=== PATIENT | female | born 1970 | race Caucasian/White ===

== ENCOUNTER 2020-08-19 08:02 | Emergency (ER) | payer BC, SELFPAY ==
--- NOTE | ~2020-08-19 | XR_ITS ---
EXAMINATION: XR CHEST CLINICAL INFORMATION: CWP. COMPARISON: 09/30/2017 chest radiographs. TECHNIQUE: 2 views of the chest were obtained. FINDINGS: The lungs show generalized hyperinflation, but otherwise are clear. The heart and mediastinal structures are unremarkable. XR/XR chest 2V IMPRESSION: Generalized hyperinflation is nonspecific, but can be seen with COPD. This is similar to the previous study. No acute cardiopulmonary process.
[2020-08-19 08:19] VITALS: BP 139/79; BP 150/60; PULSE 64; PULSE 74; RESP 18; TEMP 36.3; O2SAT 96; O2SAT 99; BMI 21.6
--- NOTE | 2020-08-19 08:29 | ED.OVERDOSE ---
HPI - Overdose General Chief Complaint: Overdose Stated Complaint: overdoses Time Seen by Provider: 08/19/20 08:28 Source: EMS Mode of arrival: EMS Limitations: no limitations History of Present Illness HPI Narrative: 50-year-old female presents via EMS with complaint of unintentional overdose. His supportive family called for patient becoming minimally responsive after taking a unknown pill. States her son had given this to her for her chronic pain and she is not sure with this 1 pill was but thought it might be oxycodone however after taking it she apparently became unresponsive requiring EMS to be called found her to be minimally responsive gave her 2 mg IM Narcan with no real fact in the meantime IV established given 2 IV and patient woke up. Patient reports history of opiate abuse but states she has been clean. Straight she strains finger was in the pill question fentanyl. She denies any suicidal homicidal ideation. States she only took this for recreational purposes and to help with her chronic pains. No recent illness. Denies any other symptoms at this time. MD complaint: accidental overdose Onset (ago): minute(s) Timing confirmed by: family member Intent: other (Help his pain) Treatments Prior to Arrival: oxygen, narcan and other Related Data Home Medications Medication Instructions Recorded Confirmed amlodipine 5 mg tablet 5 mg PO DAILY 07/26/20 07/26/20 atenolol 25 mg tablet mg PO 07/26/20 07/26/20 cetirizine 10 mg tablet 10 mg PO DAILY 07/26/20 07/26/20 flecainide 100 mg tablet 100 mg PO BID 07/26/20 07/26/20 Previous Rx's Medication Instructions Recorded carisoprodol 350 mg tablet 350 mg PO TID PRN 30 Days #90 tab 07/25/20 diazepam 10 mg tablet 10 mg PO BID PRN 30 Days #60 tab 07/25/20 gabapentin 300 mg capsule 900 mg PO TID #270 cap 07/25/20 quetiapine 25 mg tablet 25 mg PO BEDTIME 30 Days #30 tab 07/26/20 meloxicam 15 mg tablet 15 mg PO DAILY #30 tab 07/27/20 Allergies Allergy/AdvReac Type Severity Reaction Status Date / Time codeine [CODEINE] Allergy Unknown RASH Verified 07/26/20 10:15 isosorbide [ISOSORBIDE] Allergy Unknown FEEL LIKE Verified 01/12/21 10:15 IM HAVING HEART ATTACK--CP/SOB Sulfa (Sulfonamide Allergy Unknown RASH Verified 07/26/20 10:15 Antibiotics) [SULFA (SULFONAMIDE ANTIBIOTICS)] Review of Systems Review of Systems: Constitutional: No Weight loss, No Fever, No Chills, No Night Sweats, No Fatigue, No Malaise ENT/Mouth: No Hearing loss, No Ear Pain, No Nasal Congestion, No Sinus Pain, No Hoarseness, No sore throat, No Rhinorrhea, No Swallowing Difficulty Eyes: No Eye Pain, No Swelling, No Redness, No Foreign Body, No Discharge, No Vision Changes Cardiovascular: No Chest Pain, No SOB, No Dyspnea on Exertion, No Orthopnea, No Edema, No Palpitations Respiratory: No Cough, No Sputum, No Wheezing, No Smoke Exposure, No Dyspnea Gastrointestinal: No Nausea, No Vomiting, No Diarrhea, No Constipation, No abdominal Pain, No Hematochezia, No Melena Genitourinary: no irregular bleeding, No Dysuria, No Urinary Frequency, No Hematuria, No Urinary Incontinence, No Urgency, No Flank Pain Musculoskeletal: No joint pain, No Myalgias, No Joint Swelling Skin: No Skin Lesions, No rash Neuro: No Weakness, No Numbness, No Paresthesias, No Loss of Consciousness, No Dizziness, No Headache Psych: No Anxiety/Panic, No Depression, No SI/HI/AH/VH Heme/Lymph: No Bruising, No Bleeding,No Lymphadenopathy Endocrine: No Polyuria, No Polydipsia, No Temperature Intolerance Yes all other systems are reviewed and are negative [facility] Past Medical History Medical History (Updated 08/19/20 @ 10:21 by Enio Suazo NP) Aphasia Cervical neck pain with evidence of disc disease COPD (chronic obstructive pulmonary disease) Depression Dyslipidemia Insomnia Paroxysmal A-fib Reflex sympathetic dystrophy Skin cancer Vasospastic angina Surgical History H/O lymph node biopsy History of hemorrhoidectomy History of partial hysterectomy History of tubal ligation Family History Family History Father Brain cancer Mother Obesity Anxiety Maternal Grandmother Breast cancer Maternal Grandfather Lung cancer Smoker Paternal Grandfather Heart disease Paternal Grandmother Breast cancer Diabetes mellitus Brother No problems noted. Son No problems noted. Social History Social History Advance Directives: No Advance Directives Information Provided: No Physical Exam Vital Signs: Vital Signs: Last Vital Signs Temp 97.3 F 08/19/20 08:19 Pulse 74 08/19/20 09:34 Resp 18 08/19/20 09:34 BP 139/79 08/19/20 08:19 Pulse Ox 99 08/19/20 09:34 Body Mass Index 21.6 Reviewed Const: General: cooperative and healthy appearing; No acute distress or intoxicated appearing Nutritional Appearance: average body habitus Orientation/consciousness: patient oriented x3 HENMT: Head: Yes normal to inspection Ears: hearing grossly normal bilaterally Eyes: General: appearance normal, both eyes and all related structures Visual Davalos: normal visual davalos by confrontation Neck: Neck: Yes normal visual inspection, No positive Brudzinski's sign, No positive Kernig's sign and No tender Thyroid: Thyroid normal Chest: Chest palpation & inspection: normal inspection of the chest Resp: Effort & Inspection: normal respiratory effort Auscultation: clear to auscultation bilaterally Cardio: Jugular venous distension: no JVD Rate: regular rate Rhythm: regular rhythm Heart sounds: S1 normal heart sound present and S2 normal heart sound present GI: Inspection: Yes normal to inspection Percussion: Yes normal to percussion Auscultation: normal bowel sounds : General: Yes no CVA tenderness Back/Spine/Pelvis: Back: no CVA tenderness Skin: General skin exam: no rashes or lesions noted Neuro: General: patient oriented x3 Extrem: General: Yes normal to inspection Course Course Course Narrative: AP 50-year-old female with prior history of opiate abuse apparently took an unknown substance question sentinel today and subsequently becoming unresponsive with son who gave her this and required EMS to administer Narcan. She states she did this only for recreational purposes and to help with hip pain which she has chronically and this was not intentional. She is regretful that this happened and upset because she has been clean for ?many years? now. Patient monitored in the ED for couple hours has been alert and oriented x3 offers no complaints. States this is a recurrence she does not feel she has an addiction or problem at this time declined social service assistant to speak to her regarding detox and assistance on outpatient basis. Will discharge home with precaution return follow obstruction. Stable for discharge. MDM - Overdose Medical Records Attestation: I reviewed the patient's medical records. Lab Data Attestation: I reviewed the patient's lab results. Imaging Data Chest x-ray: Radiologist's impression: [address] [id number] ReportSigned Patient: Margie Shaw#: [id number]: [id number]:[id number]/Sex: 50 / FADM Date: 08/19/20Loc: HO.EDAttending Dr: Ordering Physician: Enio Suazo NP Date of Service: 08/19/20 Procedure(s): XR chest 2V Accession Number(s): [id number] cc: Enio Suazo COMMODITY SPECIALIST~ EXAMINATION: XR CHEST CLINICAL INFORMATION: CWP. COMPARISON: 09/30/2017 chest radiographs. TECHNIQUE: 2 views of the chest were obtained. FINDINGS: The lungs show generalized hyperinflation, but otherwise are clear. The heart and mediastinal structures are unremarkable. XR/XR chest 2V IMPRESSION: Generalized hyperinflation is nonspecific, but can be seen with COPD. This is similar to the previous study. No acute cardiopulmonary process. Dictated By:ALICIA RIBERA MDSigned By:<Electronically signed by ALICIA RIBREA MD in OV>08/19/20 0943 DD/ 0845TD/TT: Tafe Registrar: ROHIT ECG Data Interpretation: Sinus rhythm with marked sinus arrhythmia Otherwise normal ECG When compared with ECG of 05-JUN-2019 10:14, No significant change was found Discharge Plan Discharge Clinical Impression: Drug overdose Qualifiers: Encounter type: initial encounter Injury intent: accidental or unintentional Qualified Code(s): T50.901A - Poisoning by unspecified drugs, medicaments and biological substances, accidental (unintentional), initial encounter Patient Disposition: Home, Self-Care Instructions: Opioid Safety (ED), Adult Overdose (ED) Additional Instructions: Please do not use any illicit drugs as this is bad for her health and cause Please do not take any prescription medications that are not prescribed to you Follow up with her primary care doctor as discussed Return if any concerns or worsening symptoms Thank you Prescriptions: No Action carisoprodol 350 mg tablet 350 mg PO TID PRN (Reason: muscle pain) 30 Days Qty: 90 RF: 0 gabapentin 300 mg capsule 900 mg PO TID Qty: 270 RF: 2 diazepam 10 mg tablet 10 mg PO BID PRN (Reason: anxiety) 30 Days Qty: 60 RF: 0 meloxicam 15 mg tablet 15 mg PO DAILY Qty: 30 RF: 2 flecainide 100 mg tablet 100 mg PO BID RF: 0 amlodipine 5 mg tablet 5 mg PO DAILY RF: 0 atenolol 25 mg tablet PO RF: 0 cetirizine 10 mg tablet 10 mg PO DAILY RF: 0 quetiapine [Seroquel] 25 mg tablet 25 mg PO BEDTIME 30 Days Qty: 30 RF: 0 Referrals: Steve Eng, [employer] [Primary Care Provider] - 2 days Discharge Date/Time: 08/19/20 10:53
--- NOTE | 2020-08-19 08:45 | ECG_ITS ---
Test Reason : OVERDOSE Blood Pressure : / mmHG Vent. Rate : 075 BPM Atrial Rate : 075 BPM P-R Int : 164 ms QRS Dur : 088 ms QT Int : 360 ms P-R-T Axes : 079 036 064 degrees QTc Int : 402 ms Sinus rhythm with marked sinus arrhythmia Otherwise normal ECG When compared with ECG of 05-JUN-2019 10:14, No significant change was found Referred By: Enio Suazo Electronically Signed By:VINCE ADAMS
--- NOTE | 2020-08-19 08:56 | PC.NURSE ---
PT EVALUATED BY PROVIDER. PT AGREEABLE TO PLAN. PT IS CALM/COOPERATIVE WITH CARE. NO DISTRESS NOTED. SKIN WARM AND DRY. RESP UNLABORED. EKG BEING COMPLETED BY PCT.
--- NOTE | 2020-08-19 09:10 | MHC.RECOVSUP ---
Recovery Support note: Patient is a 50 year old [place]ian speaking female who presented to [facility] ED via EMS due to a suspected overdose. Per documentation, patient was in pain and took an unknown white pill that her son procured from an acquaintance. This real estate underwriter met with patient to offer support. Patient reports this ordeal was very scary and that she will never take an unknown pill again. Patient acknowledges that it is a very dangerous behavior. Encouraged patient to return to the hospital if she is ever in pain so that she knows exactly what type of medication she is getting. Patient acknowledged.
[2020-08-19 09:34] VITALS: PULSE 74; RESP 18; O2SAT 99
== END 2020-08-19 10:53 | disposition home or self-care (01) ==
PROVIDERS: Emergency Provider Emergency Medicine Emergency Medical Services; PCP Nurse Practitioner Family
DX: T40.2X1A Poisoning by other opioids, accidental (unintentional), initial encounter (principal); Y92.009 Unspecified place in unspecified non-institutional (private) residence as the place of occurrence of the external cause; Z79.899 Other long term (current) drug therapy
CPT/HCPCS: 71046; 93005; 99283; 99284

== ENCOUNTER → 2020-10-27 09:16 | Outpatient (BNVA) | payer BC, SELFPAY | PROVIDERS: PCP Nurse Practitioner Family; Visit Provider Nurse Practitioner Family | DX: I48.0 Paroxysmal atrial fibrillation (principal); I10 Essential (primary) hypertension | CPT/HCPCS: 99214; 93005 ==

== ENCOUNTER 2021-04-16 14:41 | Emergency (ER) | payer BC, SELFPAY ==
[2021-04-16 15:48] VITALS: BP 142/79; PULSE 67; RESP 18; TEMP 36.8; O2SAT 98; BMI 22.1
--- NOTE | 2021-04-16 16:58 | ED.SKABFB ---
HPI - Skin/Abscess/Foreign Bdy General Chief complaint: Skin/Abscess/Foreign Body Stated complaint: r leg infection spider bite Time Seen by Provider: 04/16/21 16:58 Source: patient Mode of arrival: ambulatory Limitations: no limitations History of Present Illness HPI narrative: 50-year-old female with history of a recent spider bite to her right leg is presenting to the ER today for evaluation of an open wound to the same area on her right upper ankle after she completed antibiotics. She reports the area has a central area with some yellowing to it which makes her concerned for infection. She denies any surrounding redness but the wound still is pretty tender. She also reports ongoing inguinal lymphadenopathy. She denies any fevers or chills. She is not diabetic. There is no drainage from the wound. She completed antibiotics about 5 days ago. Comes to the ER today for evaluation of wound healing. MD complaint: insect bite/sting Onset (ago): week(s) (2) Tetanus up to date: yes Location: RLE Severity: moderate Severity scale (1-10): 5 Quality: aching Pain Consistency: constant Relieving factors: cold therapy and immobilization Exacerbating factors: palpation Context: witnessed insect bite (Two weeks ago) Associated symptoms: denies other symptoms Treatments prior to arrival: OTC topical medication Related Data Previous Rx's Medication Instructions Recorded albuterol sulfate 90 mcg/actuation 1 inh INHALATION QID PRN 30 Days 10/12/20 aerosol inhaler (ProAir HFA) #8.5 g fluticasone propionate 110 1 puff INHALATION BID 30 Days #12 g 10/12/20 mcg/actuation HFA aerosol inhaler (Flovent HFA) amlodipine 5 mg tablet 5 mg PO DAILY 90 Days #90 tab 11/24/20 atenolol 25 mg tablet 12.5 mg PO DAILY 90 Days #45 tab 11/24/20 flecainide 100 mg tablet 100 mg PO BID 90 Days #180 tab 11/24/20 gabapentin 300 mg capsule 900 mg PO TID #270 cap 02/16/21 prednisone 20 mg tablet 60 mg PO DAILY 7 Days #21 tab 03/02/21 carisoprodol 350 mg tablet 350 mg PO TID 30 Days #90 tab 03/16/21 cetirizine 10 mg tablet 10 mg PO DAILY #30 tab 03/16/21 diazepam 10 mg tablet 10 mg PO BID PRN 30 Days #60 tab 03/16/21 meloxicam 15 mg tablet 15 mg PO DAILY #30 tab 03/16/21 quetiapine 25 mg tablet 25 mg PO BEDTIME #30 tab 03/16/21 amoxicillin 875 mg-potassium 1 tab PO BID #20 tab 03/31/21 clavulanate 125 mg tablet (Augmentin) Allergies Allergy/AdvReac Type Severity Reaction Status Date / Time codeine [CODEINE] Allergy Unknown RASH Verified 04/16/21 15:48 isosorbide [ISOSORBIDE] Allergy Unknown FEEL LIKE Verified 04/16/21 15:48 IM HAVING HEART ATTACK--CP/SOB Sulfa (Sulfonamide Allergy Unknown RASH Verified 04/16/21 15:48 Antibiotics) [SULFA (SULFONAMIDE ANTIBIOTICS)] Review of Systems Review of Systems: Constitutional: No Fever, No Chills Cardiovascular: No Chest Pain, No SOB Gastrointestinal: No Nausea, No Vomiting Musculoskeletal: No joint pain, No Myalgias Skin: + Skin Lesions, No rash Neuro: No Weakness, No Numbness, No Dizziness, + Headache Psych: + Anxiety/Panic, No Depression Heme/Lymph: No Bruising, + Lymphadenopathy PMFSH Past Medical History Medical History Aphasia Cervical neck pain with evidence of disc disease COPD (chronic obstructive pulmonary disease) Depression Dyslipidemia Hypertension Insomnia Paroxysmal A-fib Reflex sympathetic dystrophy Skin cancer Vasospastic angina Surgical History H/O lymph node biopsy History of hemorrhoidectomy History of partial hysterectomy History of tubal ligation Family History Family History Father Brain cancer Mother Obesity Anxiety Maternal Grandmother Breast cancer Maternal Grandfather Lung cancer Smoker Paternal Grandfather Heart disease Paternal Grandmother Breast cancer Diabetes mellitus Brother No problems noted. Son No problems noted. Social History Social History Advance Directives: No Advance Directives Information Provided: No Physical Exam Vital Signs: Vital Signs: Last Vital Signs Temp 98.2 F 04/16/21 15:48 Pulse 67 04/16/21 15:48 Resp 18 04/16/21 15:48 BP 142/79 H 04/16/21 15:48 Pulse Ox 98 04/16/21 15:48 Body Mass Index 22.1 Appearance: Alert. Oriented X3. No acute distress. HEENT: normal inspection CVS: Normal heart rate and rhythm. Pulses normal. Respiratory: No respiratory distress. Skin: Skin warm and dry. Normal skin color. Normal skin turgor. No rashes. Extremities: Right upper ankle with a 3 cm circular lesion with pink granulation tissue on the periphery, center with areas of erythema and slight yellow in color. No fluctuance no induration. No surrounding erythema. the lesion is tender. No palpable right inguinal lymphadenopathy. Neuro: Oriented X 3. No motor deficit. No sensory deficit. Course Course Course Narrative: 50-year-old female coming in for evaluation of a spider bite that she sustained to her right lower extremity about 2 weeks ago. She states this was a brown recluse witnessed spider bite. She was placed on antibiotics and completed treatment about 5 days ago. The area has some slight yellowing centrally. This made her worried about infection the wound appears to be healing appropriately with nice fresh pink granulation tissue. There does not appear to be surrounding cellulitis or abscess formation she has no systemic signs of infection. She was very reassured with this assessment and will follow-up with her doctor for further management. Antibiotic ointment and sterile dressing applied. patient is stable for discharge Critical Care Time Critical Care Time Critical Care Time: No Discharge Plan Discharge Clinical Impression: Brown recluse spider bite Patient Disposition: Home, Self-Care Instructions: Brown Recluse Spider Bite (ED) Additional Instructions: No additional antibiotics are needed at this time. Continue local wound care as you are at home. The wound is healing appropriately. Follow-up with your doctor as needed. If you develop surrounding redness, warmth, worsening tenderness or drainage of pus or fevers come back to the ER for further evaluation. Prescriptions: No Action Flovent HFA 110 mcg/actuation HFA aerosol inhaler 1 puff inhalation BID 30 Days Qty: 12 RF: 2 albuterol sulfate [ProAir HFA] 90 mcg/actuation HFA aerosol inhaler 1 inh inhalation QID PRN (Reason: shortness of breath or wheezing) 30 Days Qty: 8.5 RF: 2 amlodipine 5 mg tablet 5 mg PO DAILY 90 Days Qty: 90 RF: 1 atenolol 25 mg tablet 12.5 mg PO DAILY 90 Days Qty: 45 RF: 1 flecainide 100 mg tablet 100 mg PO BID 90 Days Qty: 180 RF: 1 gabapentin 300 mg capsule 900 mg PO TID Qty: 270 RF: 2 prednisone 20 mg tablet 60 mg PO DAILY 7 Days Qty: 21 RF: 0 cetirizine 10 mg tablet 10 mg PO DAILY Qty: 30 RF: 2 carisoprodol 350 mg tablet 350 mg PO TID 30 Days Qty: 90 RF: 0 diazepam 10 mg tablet 10 mg PO BID PRN (Reason: anxiety) 30 Days Qty: 60 RF: 0 quetiapine 25 mg tablet 25 mg PO BEDTIME Qty: 30 RF: 0 meloxicam 15 mg tablet 15 mg PO DAILY Qty: 30 RF: 2 amoxicillin-pot clavulanate [Augmentin] 875-125 mg tablet 1 tab PO BID Qty: 20 RF: 0
== END 2021-04-16 17:55 | disposition home or self-care (01) ==
PROVIDERS: Emergency Provider Emergency Medicine Emergency Medical Services; PCP Nurse Practitioner Family
DX: T63.331A Toxic effect of venom of brown recluse spider, accidental (unintentional), initial encounter (principal); L02.415 Cutaneous abscess of right lower limb; R00.2 Palpitations; Y92.9 Unspecified place or not applicable; Z79.899 Other long term (current) drug therapy
CPT/HCPCS: 99283

== ENCOUNTER → 2021-06-14 08:40 | Outpatient (BNVA) | payer BC, SELFPAY | PROVIDERS: PCP Nurse Practitioner Family; Referring Provider Nurse Practitioner Family; Visit Provider Internal Medicine Cardiovascular Disease | DX: I48.0 Paroxysmal atrial fibrillation (principal); I10 Essential (primary) hypertension; R06.02 Shortness of breath | CPT/HCPCS: 93005 ==

== ENCOUNTER 2021-08-29 12:34 | Emergency (ER) | payer BC, SELFPAY ==
[2021-08-29 12:49] VITALS: BP 150/80; PULSE 80; O2SAT 99
[2021-08-29 13:03] VITALS: BP 129/79; PULSE 65; RESP 16; TEMP 36.4; O2SAT 100; BMI 22.4
--- NOTE | 2021-08-29 13:07 | ED.OVERDOSE ---
HPI - Overdose General Chief Complaint: Overdose Stated Complaint: OD,NARCAN 8MG BY FAMILY W/GOOD RESULT Time Seen by Provider: 08/29/21 12:50 Source: patient and EMS Mode of arrival: EMS Limitations: no limitations History of Present Illness HPI Narrative: 51-year-old female with a history of AFib, high cholesterol, hypertension here with reports of overdose. Per EMS the patient was found lying supine in her bed unresponsive and not breathing. Gave her 8 mg of intranasal Narcan and when EMS arrived she was alert and oriented. Patient denies using any substances. The patient tells me she took her gabapentin, aspirin and flecainide and decided to take a nap. She tells me she gets these medications from pharmacy. She denies any drug use or alcohol use. She denies any suicidal thoughts or intentional overdose. Per EMS they have been to the patient's house before for her overdosing requiring narcan. On arrival the patient complaining of diarrhea, runny nose, feeling cold, sneezing and yawning Related Data Previous Rx's Medication Instructions Recorded fluticasone propionate 110 1 puff INHALATION BID 30 Days #12 g 10/12/20 mcg/actuation HFA aerosol inhaler (Flovent HFA) atenolol 25 mg tablet 12.5 mg PO DAILY 90 Days #45 tab 06/14/21 cetirizine 10 mg tablet 10 mg PO DAILY #30 tab 06/19/21 meloxicam 15 mg tablet 15 mg PO DAILY #30 tab 07/18/21 amlodipine 5 mg tablet 5 mg PO DAILY 90 Days #90 tab 08/15/21 carisoprodol 350 mg tablet 350 mg PO TID 30 Days #90 tab 08/15/21 diazepam 10 mg tablet 10 mg PO BID PRN 30 Days #60 tab 08/15/21 flecainide 100 mg tablet 100 mg PO BID 90 Days #180 tab 08/15/21 gabapentin 300 mg capsule 900 mg PO TID #270 cap 08/15/21 quetiapine 25 mg tablet 25 mg PO BEDTIME #30 tab 08/15/21 Allergies Allergy/AdvReac Type Severity Reaction Status Date / Time codeine [CODEINE] Allergy Unknown RASH Verified 04/16/21 15:48 isosorbide [ISOSORBIDE] Allergy Unknown FEEL LIKE Verified 04/16/21 15:48 IM HAVING HEART ATTACK--CP/SOB Sulfa (Sulfonamide Allergy Unknown RASH Verified 04/16/21 15:48 Antibiotics) [SULFA (SULFONAMIDE ANTIBIOTICS)] Review of Systems Review of Systems: Yes all other systems are reviewed and are negative Constitutional: Constitutional: Reports no additional constitutional complaints, Denies body ache(s), Denies chills, Denies fever(s), Denies headache(s) and Denies weakness Eyes: Eyes: Reports no additional eye complaints and Denies change in vision ENT: Reports system reviewed and no additional complaints, except as documented, Denies dizziness, Denies headache(s), Denies nasal congestion, Reports nasal discharge and Denies neck pain Comments: +sneezing, yawning Cardiovascular: Cardiovascular: Reports no additional cardiovascular complaints, Denies chest pain, Denies leg edema and Denies dyspnea Respiratory: Respiratory: Reports no additional respiratory complaints, Denies cough and Denies dyspnea Gastrointestinal: Gastrointestinal: Reports no additional gastrointestinal complaints, Denies abdominal pain, Reports diarrhea, Denies nausea and Denies vomiting Genitourinary: Genitourinary: Reports no additional female genitourinary complaints and Denies urinary incontinence Musculoskeletal: Musculoskeletal: Reports no additional musculoskeletal complaints, Denies back pain, Denies arthralgias, Denies joint swelling, Denies neck pain, Denies numbness and Denies tingling Integumentary/Breasts: Skin/Breast: Reports system reviewed and no additional complaints, except as docu and Denies rash Neurologic: Reports system reviewed and no additional complaints, except as documented, Denies Abnormal speech present, Denies dizziness, Denies headache(s), Denies numbness, Denies tingling and Denies weakness [facility] Past Medical History Attestation statement: The following information was validated with the patient. Source: old records reviewed and nursing notes reviewed Medical History Aphasia Cervical neck pain with evidence of disc disease COPD (chronic obstructive pulmonary disease) Depression Dyslipidemia Hypertension Insomnia Paroxysmal A-fib Reflex sympathetic dystrophy Skin cancer Vasospastic angina Surgical History H/O lymph node biopsy History of hemorrhoidectomy History of partial hysterectomy History of tubal ligation Family History Family History Father Brain cancer Mother Obesity Anxiety Maternal Grandmother Breast cancer Maternal Grandfather Lung cancer Smoker Paternal Grandfather Heart disease Paternal Grandmother Breast cancer Diabetes mellitus Brother No problems noted. Son No problems noted. Social History Social History Advance Directives: No Advance Directives Information Provided: No Physical Exam Vital Signs: Vital Signs: Last Vital Signs Temp 97.5 F 08/29/21 13:03 Pulse 65 08/29/21 13:03 Resp 16 08/29/21 13:03 BP 129/79 08/29/21 13:03 Pulse Ox 100 08/29/21 13:03 BMI result Body Mass Index 22.4 Const: General: cooperative, healthy appearing, comfortable and no acute distress Orientation/consciousness: patient oriented x3 Limitations: no limitations HENMT: Head: Yes normal to inspection Ears: hearing grossly normal bilaterally General nose exam: Normal external nose present Face and sinus: Yes normal facial exam Mouth: Normal oral and palatal mucosa present Throat: Yes posterior oropharynx normal Eyes: General: appearance normal, both eyes and all related structures Pupils: Equal, round and reactive pupils present Neck: Neck: Yes normal visual inspection Chest: Chest palpation & inspection: normal inspection of the chest Resp: Effort & Inspection: normal respiratory effort Auscultation: clear to auscultation bilaterally Cardio: Rate: regular rate Rhythm: regular rhythm Peripheral pulses: Peripheral pulses 2+ throughout GI: Inspection: Yes normal to inspection Palpation (GI): Soft to palpation and nontender Auscultation: normal bowel sounds Back/Spine/Pelvis: Thoracic/Lumbar Spine: thoracic and lumbar spine normal to inspection Skin: General skin exam: no rashes or lesions noted Neuro: General: patient oriented x3, no focal motor deficits and normal sensation to monofilament Cranial nerves: Yes Equal, round and reactive pupils present Cognition (Neuro): normal cognition Speech: No Abnormal speech present Gait exam (Neuro): Normal gait present Motor exam (neuro): 5/5 motor strength present throughout Extrem: General: Yes normal to inspection Course Course Course Narrative: 51 yo female here unintentional OD requiring 8 mg of intranasal Narcan. Patient denies using any substances. She is complaining of feeling like she is cold, having diarrhea, chills, sneezing, yawning and runny nose likely secondary to Narcan use. Toxicology screen is positive for fentanyl, benzodiazepines, cocaine and marijuana. Patient denies all substances. Plan for observation prior to discharge home 1440-toxicology positive for benzodiazepines, fentanyl, THC, cocaine. Patient tells me that she took a ?pain pill from a friend that she believes was bought off of the street. She does not know what it contained. She tells me she took it today because she had a headache. She also smokes marijuana which she buys off of the street. She has been alert and oriented for the last 2 hours after observation. In the emergency department. I will discharge her home with Narcan. She will be discharged home in the care of her son. Reviewed worrisome signs and symptoms of when to return to the emergency department. Comfortable discharge home for MDM - Overdose Medical Records Attestation: I reviewed the patient's medical records. Lab Data Attestation: I reviewed the patient's lab results. Labs: Lab Results 08/29/21 Range/Units 13:17 Urine Opiates Screen Not Detected (Not Detect) Urine Fentanyl Screen POSITIVE H (Not Detect) Ur Barbiturates Screen Not Detected (Not Detect) Ur Phencyclidine Scrn Not Detected (Not Detect) Ur Amphetamines Screen Not Detected (Not Detect) U Benzodiazepines Scrn POSITIVE H (Not Detect) Urine Cocaine Screen POSITIVE H (Not Detect) U Marijuana (THC) Screen POSITIVE H (Not Detect) Discharge Plan Discharge Clinical Impression: Overdose Patient Disposition: Home, Self-Care Instructions: Adult Overdose (ED) Prescriptions: No Action Flovent HFA 110 mcg/actuation HFA aerosol inhaler 1 puff inhalation BID 30 Days Qty: 12 2RF cetirizine 10 mg tablet 10 mg PO DAILY Qty: 30 2RF meloxicam 15 mg tablet 15 mg PO DAILY Qty: 30 2RF carisoprodol 350 mg tablet 350 mg PO TID 30 Days Qty: 90 0RF gabapentin 300 mg capsule 900 mg PO TID Qty: 270 2RF diazepam 10 mg tablet 10 mg PO BID PRN (Reason: anxiety) 30 Days Qty: 60 0RF quetiapine 25 mg tablet 25 mg PO BEDTIME Qty: 30 0RF amlodipine 5 mg tablet 5 mg PO DAILY 90 Days Qty: 90 3RF flecainide 100 mg tablet 100 mg PO BID 90 Days Qty: 180 1RF atenolol 25 mg tablet 12.5 mg PO DAILY 90 Days Qty: 45 3RF Referrals: Steve Eng, [employer] [Primary Care Provider] - 1 week Interventions: ED Discharge Assessment Last Done: 08/29/21 14:50 Discharge Date/Time: 08/29/21 14:50
--- NOTE | 2021-08-29 13:26 | PC.NURSE ---
PT DENIES SI/HI PT STATES I ONLY TOOK THE MEDICATIONS THAT I AM PRESCRIBED. CALM/COOPERATIVE. EVALUATED BY MO RIVAS
[2021-08-29 13:41] LABS: Amphetamine Screen Urine Not Detected (Not Detect); Barbiturates, Urine Not Detected (Not Detect); Benzodiazepines Screen Urine POSITIVE (Not Detect); Cannabinoid Screen Urine POSITIVE (Not Detect); Cocaine Screen Urine POSITIVE (Not Detect); Fentanyl, urine POSITIVE (Not Detect); Opiate Screen Urine Not Detected (Not Detect); Phencyclidine Screen Urine Not Detected (Not Detect)
[2021-08-29] MEDS: Naloxone HCl Nasal TAKE HOME 4 MG SPRAY NOSTRILALT (14:49)
== END 2021-08-29 14:50 | disposition home or self-care (01) ==
PROVIDERS: Nurse Practitioner Family; Emergency Provider Emergency Medicine; PCP Nurse Practitioner Family
DX: T40.5X1A Poisoning by cocaine, accidental (unintentional), initial encounter (principal); T40.411A Poisoning by fentanyl or fentanyl analogs, accidental (unintentional), initial encounter; T42.4X1A Poisoning by benzodiazepines, accidental (unintentional), initial encounter; Y92.9 Unspecified place or not applicable; Z79.899 Other long term (current) drug therapy; Z71.51 Drug abuse counseling and surveillance of drug abuser
CPT/HCPCS: 80307; 99284; 99285

== ENCOUNTER → 2021-09-28 13:04 | Outpatient (REF) | payer BC, SELFPAY ==
--- NOTE | 2021-09-28 13:07 | CA_ITS ---
Transthoracic Echocardiogram Patient (Last, First, Middle): Alba Shaw, Gender: Female Date of : 1970 Age: 51 Procedure Date: 09/28/2021 Procedure Type: Transthoracic Echocardiogram Location: OP Height: 165.1 cm Weight: 61.24 kg BSA: 1.67 m2 Heart Rate: bpm BP: 135 / 82 mmHg Lead Mechanic: MIKE Referring MD: Irving Leiva MD Symptoms: I48.0 - Paroxysmal atrial fibrillation Study Quality: Good ECG Rhythm: Sinus Conclusions: - The left ventricular systolic function is normal. The calculated ejection fraction is 59% by biplane method. - LV peak GLS -15.1%. - No obvious valvular pathology seen on this study. Findings Left Ventricle Normal left ventricular cavity size. There is normal left ventricular wall thickness. The left ventricular systolic function is normal. The calculated ejection fraction is 59% by biplane method. There is no evidence of regional wall motion abnormalities. Diastolic function is normal for age. LV peak GLS -15.1%. Right Ventricle Normal right ventricular cavity size and systolic function. Atria Both atria are normal in size. There is no evidence of interatrial shunt by color Doppler. Interatrial septum has a slight bulge to the right side but no clear aneurysm. Aortic Valve There is a normal trileaflet aortic valve. There is no aortic valve stenosis. There is no aortic valve regurgitation. Mitral Valve The mitral valve appears normal. There is trace mitral valve regurgitation. There is no mitral valve stenosis. Pulmonic Valve The pulmonic valve was not well visualized. Tricuspid Valve Normal tricuspid valve structure. There is trace tricuspid valve regurgitation. The pulmonary artery systolic pressure is normal. Great Vessels The aortic annulus, sinuses of valsalva, and asc aorta are normal in size. Venous The inferior vena cava is normal in size and collapses greater than 50% with inspiration. Pericardium/Pleural There is no evidence of pericardial effusion. Prior Study Comparison No significant change compared to prior study dated: 02/19/2017. Recommendations, Care & Conclusions No obvious valvular pathology seen on this study. Measurements 2D Linear Measurements IVSd: 1.01 0.6-0.9/0.6-1.0 cm LVIDd: 4.69 3.9-5.3/4.2-5.9 cm LVIDd Index: 2.81 2.4-3.2/2.2-3.1 cm/m2 LVIDs: 3.31 2.0-3.6 cm LVPWd: 0.95 0.7-1.1 cm LA Diam: 2.80 2.7-3.8/3.0-4.0 cm LAIDs Index: 1.68 1.5-2.3 cm/m2 LV Mass: 198.42 67-162/88-224 g LV Mass Index: 118.81 43-95/49-115 g/m2 LVOT Diam: 2.00 3.0+(-)1.3 cm 2D Systolic Function EF 4C: 65.10 >55% EF 2C: 52.80 >55% EF BiP: 58.60 >55% Mitral Valve MV Pk E: 0.46 MV PK A: 0.38 MV Decel Time: 217.00 E/A: 1.20 E'Lateral: 9.79 E'Medial: 8.05 E/E' Med: 5.80 E/E' Lat: 4.70 PHT: 63.00 MVA PHT: 3.49 Decel [place]: 2.14 Aortic Valve AoV Pk Erick: 0.92 AoV Pk Grad: 3.00 LVOT LVOT Pk Erick: 0.73 LVOT Mn Erick: 0.46 LVOT VTI: 0.17 LVOT Pk Grad: 2.00 LVOT Mn Grad: 1.00 LVOT Diam: 2.00 LVOT Area: 3.14 Diastolic Function MV Pk E: 0.46 MV Pk A: 0.38 E/A: 1.20 E'Medial: 8.05 E/E' Med: 5.80 E' Laterial: 9.79 E/E' Lat: 4.70 Right Ventricle TAPSE (mm): 2.00 TVS' Erick: 9.90 Tricuspid Valve TR Pk Erick: 2.57 TR Pk Grad: 26.00 RA Press: 3.00 RVSP: 29.00 Great Vessels Aorta Sinus of Valsalva: 3.14 2.0-3.5 cm Ao Asc: 3.00 2.1-3.4 cm Updated in Other Vendor System with Status of Final Homero Yoo MD electronically signed on 09/30/2021 12:13:07 PM with status of Final
== END ==
LOC: HO.CARD 13:04
PROVIDERS: PCP Nurse Practitioner Family; Visit Provider Internal Medicine Cardiovascular Disease
DX: I48.0 Paroxysmal atrial fibrillation (principal)
CPT/HCPCS: 93306

== ENCOUNTER → 2021-12-21 15:24 | Outpatient (BNVA) | payer BC, SELFPAY | PROVIDERS: PCP Nurse Practitioner Family; Visit Provider Internal Medicine Cardiovascular Disease | DX: I45.10 Unspecified right bundle-branch block (principal); R94.31 Abnormal electrocardiogram [ECG] [EKG] | CPT/HCPCS: 93005 ==

== ENCOUNTER → 2023-01-10 12:59 | Outpatient (BNVA) | payer OTHER, SELFPAY | PROVIDERS: PCP Nurse Practitioner Family; Visit Provider Nurse Practitioner Family | DX: I48.0 Paroxysmal atrial fibrillation (principal); I10 Essential (primary) hypertension; R06.02 Shortness of breath; R07.89 Other chest pain | CPT/HCPCS: 93005; 99212 ==

== ENCOUNTER 2023-06-25 09:36 | Outpatient (AMB) | payer SELFPAY ==
--- NOTE | 2023-06-25 07:21 | A.OFFPC_ITS ---
Intake Visit Reasons: Med review/ [phone] Allergies codeine [CODEINE] Allergy (Unknown, Verified 01/10/23 13:06) RASH isosorbide [ISOSORBIDE] Allergy (Unknown, Verified 01/10/23 13:06) FEEL LIKE IM HAVING HEART ATTACK--CP/SOB Sulfa (Sulfonamide Antibiotics) [SULFA (SULFONAMIDE ANTIBIOTICS)] Allergy (Unknown, Verified 01/10/23 13:06) RASH Medication List - Last Reconciled 06/25/[address] [facility]- amlodipine 5 mg PO DAILY aspirin (Adult Aspirin Regimen) 81 mg PO DAILY atenolol 12.5 mg (1/2 x 25 mg) PO DAILY carisoprodol 350 mg PO TID 30 days cetirizine 10 mg PO DAILY diazepam 10 mg PO BID PRN 30 days flecainide 100 mg PO BID gabapentin 900 mg (3 x 300 mg) PO TID hydrochlorothiazide 12.5 mg PO DAILY 30 days hydrochlorothiazide 12.5 mg PO DAILY meloxicam 15 mg PO DAILY quetiapine 50 mg PO BEDTIME 90 days Tobacco use date assessed: 11/13/21 HPI Med review/ [phone] HPI Details Pt c/o right hip pain. She reports that the pain does not feel muscular in nature. Will order XR. Due for mammo, will order. Pt c/o increased anxiety/depression. She is currently taking seroquel 25mg. Will increased to 50mg. Denies any SI and HI. does not have or want a therapist (currently) [facility] Medical History Aphasia Cervical neck pain with evidence of disc disease COPD (chronic obstructive pulmonary disease) Depression Dyslipidemia Hypertension Insomnia Paroxysmal A-fib Reflex sympathetic dystrophy Skin cancer Vasospastic angina Surgical History H/O lymph node biopsy History of hemorrhoidectomy History of partial hysterectomy History of tubal ligation Family History Father Brain cancer Mother Obesity Anxiety Mental health disorder Maternal Grandmother Breast cancer Maternal Grandfather Lung cancer Smoker Paternal Grandfather Heart disease Paternal Grandmother Breast cancer Diabetes mellitus Brother Mental health disorder Son Mental health disorder Paternal Uncle Substance use disorder Family/Other No problems noted. Family/Other Substance use disorder Social History Housing: House Patient Tobacco Use Status: Current everyday Tobacco user Cigarettes Per Day: 7 e-Cigarette/Vaping Use: Never Used Second Hand Smoke Exposure: Yes Current occupational status: disabled Cognitive needs: No Hearing needs: No Vision needs: No Review of Systems Const Reports as per HPI Physical exam (Primary Care) Tobacco/Smoking Status: Tobacco use Status Tobacco use date assessed 11/13/21 06/06/22 07:16 Patient Tobacco Use Status Current everyday Tobacco 06/06/22 07:16 e-Cigarette/Vaping Use Never Used 06/06/22 07:16 Const General: cooperative Orientation/consciousness: patient oriented x3 Neuro General: patient oriented x3 Psych Appearance: grossly normal Mental Status: mental status grossly normal Speech and movement: Clear speech present Affect: normal affect Attitude: cooperative Thought process: Normal thought process present Thought content: Normal thought content present Insight: Good insight present (Psych) Judgement: Good judgement present (Psych) Telehealth Telehealth Location of provider rendering services: practice address Location of patient: address on file Patient Identification confirmed using: Name, : Yes Telehealth method: video Patient verbally consented to treatment: Yes Patient verbally consented to billing insurance company: Yes Patient informed of any privacy concerns related to visit: Yes Minutes spent on Phone/Video with Pt.: 15 Assessment and Plan Assessment & Plan (1) Right hip pain: Code(s): M25.551 - Pain in right hip Plan: XR ordered Plan The patient agreed to the use of a medical laboratory technical officer for this encounter. Scribed for SEBASTIAN Huff-[facility] by Elsi العلي medical laboratory technical officer, on 06/25/2023 at 07:20 EST. Orders: Orders MM screening mammo BI Today Z12.31 - Encounter for screening mammogram for malignant neoplasm of breast XR hip RT min 2V Today M25.551 - Pain in right hip Medications: Changed 2 From quetiapine 25 mg PO BEDTIME 90 tabs 0RF To quetiapine 50 mg PO BEDTIME 90 days 90 tabs 0RF Coding Level of Care Code Tele Est Pt Level 3 (25361) Diagnoses Right hip pain M25.443
== END 2023-06-25 12:19 | disposition home or self-care (01) ==
LOC: HO.HMGC 09:36
PROVIDERS: PCP Nurse Practitioner Family; Visit Provider Nurse Practitioner Family
DX: M25.551 Pain in right hip (principal)
CPT/HCPCS: 99213

== ENCOUNTER 2023-08-01 13:28 | Outpatient (AMB) | payer SELFPAY ==
[2023-08-01 13:38] VITALS: BP 130/92; PULSE 76; BMI 19.8
--- NOTE | 2023-08-01 13:38 | A.OFFVIS_ITS ---
Intake Vital Signs 08/01/23 13:38 Height 5 ft 5 in Weight 119 lb 0.794 oz BMI 19.8 BP 130/92 H Blood Pressure Location Lt brachial Position Sitting Pulse 76 Pulse Source Monitor Intake Visit Reasons: 6 mth fu w/ ekg Education Supervisor Required: No Allergies codeine [CODEINE] Allergy (Unknown, Verified 08/01/23 13:41) RASH isosorbide [ISOSORBIDE] Allergy (Unknown, Verified 08/01/23 13:41) FEEL LIKE IM HAVING HEART ATTACK--CP/SOB Sulfa (Sulfonamide Antibiotics) [SULFA (SULFONAMIDE ANTIBIOTICS)] Allergy (Unknown, Verified 08/01/23 13:41) RASH Medication List - Last Reconciled 08/01/23 by Dalia Leigh NP-C amlodipine 5 mg PO DAILY aspirin (Adult Aspirin Regimen) 81 mg PO DAILY atenolol 12.5 mg (1/2 x 25 mg) PO DAILY carisoprodol 350 mg PO TID 30 days cetirizine 10 mg PO DAILY diazepam 10 mg PO BID PRN 30 days flecainide 100 mg PO BID gabapentin 900 mg (3 x 300 mg) PO TID meloxicam 15 mg PO DAILY quetiapine 50 mg PO BEDTIME 90 days HPI 6 mth fu w/ ekg HPI Details Alba is a 53-year-old female with past medical history of hypertension, hyperlipidemia, COPD, paroxysmal atrial fibrillation who presents for follow-up. Today she reports she has been feeling very well since her last visit December 2022. She has not had any chest discomfort at rest or with activity. She will feel an occasional brief heart palpitation. No sustained rapid or irregular heart rates noted. No concerning shortness of breath, PND, orthopnea or edema. No lightheadedness, presyncope, syncope, falls. Taking meds as directed. [facility] Medical History Hypertension Insomnia Depression Skin cancer Vasospastic angina Cervical neck pain with evidence of disc disease Dyslipidemia COPD (chronic obstructive pulmonary disease) Paroxysmal A-fib Aphasia Reflex sympathetic dystrophy Surgical History H/O lymph node biopsy History of hemorrhoidectomy History of partial hysterectomy History of tubal ligation Family History Father Brain cancer Mother Obesity Anxiety Mental health disorder Maternal Grandmother Breast cancer Maternal Grandfather Lung cancer Smoker Paternal Grandfather Heart disease Paternal Grandmother Breast cancer Diabetes mellitus Brother Mental health disorder Son Mental health disorder Paternal Uncle Substance use disorder Family/Other No problems noted. Family/Other Substance use disorder Social History Housing: House Patient Tobacco Use Status: Current everyday Tobacco user Cigarettes Per Day: 7 e-Cigarette/Vaping Use: Never Used Second Hand Smoke Exposure: Yes Current occupational status: disabled Cognitive needs: No Hearing needs: No Vision needs: No Review of Systems Const All systems reviewed & are unremarkable except as noted in HPI and below ENT Denies dizziness Card Details: brief palpitations Denies chest pain, Denies chest pain at rest, Denies chest pain with activity, Denies rapid heart rate, Denies pedal edema, Denies edema, Denies leg edema, Denies lightheadedness, Denies palpitations, Denies dyspnea, Denies dyspnea on exertion and Denies orthopnea Resp Denies cough, Denies dyspnea and Denies dyspnea on exertion GI Denies hematochezia and Denies change in stool character Musc Denies abnormal gait, Denies limited range of motion, Denies muscle cramps, Denies muscle weakness, Denies numbness, Denies radiating pain into limb, Denies stiffness and Denies tingling Neuro Denies abnormal gait, Denies dizziness, Denies numbness and Denies tingling Endo Denies palpitations Physical Exam Vital Signs: Last Vital Signs Pulse 76 08/01/23 13:38 BP 130/92 H 08/01/23 13:38 BMI result Body Mass Index 19.8 Const General: cooperative, healthy appearing, comfortable and no acute distress Orientation/consciousness: patient oriented x3 Neck Neck: Yes normal visual inspection Resp Effort & Inspection: normal respiratory effort Auscultation: clear to auscultation bilaterally, no crackles, no rales, no rhonchi and no wheezes Cardio Jugular venous distension: no JVD Rate: regular rate Rhythm: regular rhythm Heart sounds: S1 normal heart sound present, S2 normal heart sound present, no murmurs and no rubs Neuro General: patient oriented x3 Extrem General: Yes normal to inspection and No no pedal edema Psych Appearance: grossly normal Mental Status: mental status grossly normal Speech and movement: Normal speech and movement present Office Procedures EKG Details: Today, read by me, sinus rhythm with 1 Pac, no acute ST or T-wave abnormalities, no significant change from prior, rate 76, QTC 423 millisecond [id number], Complete Assessment & Plan Assessment & Plan (1) Paroxysmal A-fib: Code(s): I48.0 - Paroxysmal atrial fibrillation Plan: History of paroxysmal atrial fibrillation. Suppressed with flecainide 100 mg b.i.d. and atenolol 12.5 mg daily. Today she reports intermittent brief palpitations lasting less than a minute. Overall no concerning symptoms. EKG showing sinus rhythm with PAC, heart rate 76. QTC 423 milliseconds. Last Echocardiogram done 09/28/2021 showed EF 59%, no valve abnormalities. Will continue on current med management. She is not on anticoagulation due to low stroke risk. Cardiology follow-up 6 months, sooner if needed (2) Hypertension: Code(s): I10 - Essential (primary) hypertension Plan: Well controlled at present time. No med changes made. (3) Shortness of breath: Code(s): R06.02 - Shortness of breath Plan: Chronic shortness of breath with exertion which she relates to COPD. On exam lungs are clear. No clinical signs of fluid overload. Plan Time spent on chart review, documentation, interview and assessment Medications: Changed From atenolol 12.5 mg (1/2 x 25 mg) PO DAILY 15 tabs 6RF I48.0 - Paroxysmal atrial fibrillation To atenolol 12.5 mg (1/2 x 25 mg) PO DAILY 45 tabs 3RF 90 days I48.0 - Paroxysmal atrial fibrillation From flecainide 100 mg PO BID 60 tabs 5RF To flecainide 100 mg PO BID 180 tabs 3RF 90 days Coding Level of Care Code Est Pt Level 4 (70568) Diagnoses Paroxysmal A-fib I48.0 Hypertension I10 Shortness of breath R06.02 CPT Codes EKG - CPT: 02549-[id number], Complete ([id number]) Time Spent (min) 28
== END 2023-08-01 14:06 | disposition home or self-care (01) ==
PROVIDERS: PCP Nurse Practitioner Family; Visit Provider Nurse Practitioner Family
DX: I48.0 Paroxysmal atrial fibrillation (principal); I10 Essential (primary) hypertension; R06.02 Shortness of breath
CPT/HCPCS: 93010; 99214

== ENCOUNTER → 2023-08-01 13:28 | Outpatient (BNVA) | payer SELFPAY | PROVIDERS: PCP Nurse Practitioner Family; Visit Provider Nurse Practitioner Family | DX: I48.0 Paroxysmal atrial fibrillation (principal); I10 Essential (primary) hypertension; R06.02 Shortness of breath; Z79.899 Other long term (current) drug therapy | CPT/HCPCS: 93005; 99212 ==

== ENCOUNTER → 2024-06-15 12:44 | Outpatient (BNVA) | payer SELFPAY | PROVIDERS: PCP Nurse Practitioner Family; Visit Provider Nurse Practitioner Family ==

== ENCOUNTER 2024-06-22 12:58 | Outpatient (AMB) | payer OTHER, SELFPAY ==
--- NOTE | 2024-06-22 13:04 | MHC.OFFVIS ---
Vital Signs 06/22/24 13:14 Height 5 ft 5 in Weight 114 lb 10.246 oz BMI 19.1 BP 110/60 Blood Pressure Location Lt brachial Position Sitting Pulse 60 Pulse Source Monitor Intake Visit Reasons: overdue 6 mth fu with ekg Allergies codeine [CODEINE] Allergy (Unknown, Verified 08/01/23 13:41) RASH isosorbide [ISOSORBIDE] Allergy (Unknown, Verified 08/01/23 13:41) FEEL LIKE IM HAVING HEART ATTACK--CP/SOB Sulfa (Sulfonamide Antibiotics) [SULFA (SULFONAMIDE ANTIBIOTICS)] Allergy (Unknown, Verified 08/01/23 13:41) RASH Medication List - Last Reconciled 06/22/24 by Irving Leiva MD amlodipine 5 mg PO DAILY aspirin (Adult Aspirin Regimen) 81 mg PO DAILY atenolol 12.5 mg (1/2 x 25 mg) PO DAILY 90 days carisoprodol 350 mg PO TID 30 days cetirizine 10 mg PO DAILY diazepam 10 mg PO BID PRN 30 days flecainide 100 mg PO BID 90 days gabapentin 900 mg (3 x 300 mg) PO TID meloxicam 15 mg PO DAILY quetiapine 50 mg PO BEDTIME 90 days HPI Comments Details: Alba comes after a longer gap. She says she was battling with depression but now he is doing better. She had lost a lot of weight but now is eating better and improving in her weight. She has also cut down her smoking significantly. She says she is now has lot of cough productive of phlegm. No wheezing. No significant exertional shortness of breath or chest discomfort. Denies any orthopnea, PND. No episodes of atrial fibrillation. Denies any alcohol or any other drug use. [facility] Medical History Hypertension Insomnia Depression Skin cancer Vasospastic angina Cervical neck pain with evidence of disc disease Dyslipidemia COPD (chronic obstructive pulmonary disease) Paroxysmal A-fib Aphasia Reflex sympathetic dystrophy Surgical History H/O lymph node biopsy History of hemorrhoidectomy History of partial hysterectomy History of tubal ligation Family History Father Brain cancer Mother Obesity Anxiety Mental health disorder Maternal Grandmother Breast cancer Maternal Grandfather Lung cancer Smoker Paternal Grandfather Heart disease Paternal Grandmother Breast cancer Diabetes mellitus Brother Mental health disorder Son Mental health disorder Paternal Uncle Substance use disorder Family/Other No problems noted. Family/Other Substance use disorder Social History Housing: House Patient Tobacco Use Status: Current everyday Tobacco user Cigarettes Per Day: 7 e-Cigarette/Vaping Use: Never Used Second Hand Smoke Exposure: Yes Current occupational status: disabled Cognitive needs: No Hearing needs: No Vision needs: No Review of Systems Const Denies weakness ENT Denies dizziness Card Denies chest pain, Denies chest pain with activity, Denies syncope, Denies rapid heart rate, Denies pedal edema, Denies edema, Denies leg edema, Denies lightheadedness, Denies palpitations, Denies dyspnea, Denies dyspnea on exertion and Denies orthopnea Resp Denies cough, Denies dyspnea and Denies dyspnea on exertion GI Denies hematochezia and Denies change in stool character Musc Denies abnormal gait, Denies muscle cramps, Denies muscle weakness, Denies numbness, Denies radiating pain into limb and Denies tingling Neuro Denies abnormal gait, Denies dizziness, Denies syncope, Denies numbness, Denies tingling and Denies weakness Endo Denies palpitations Physical Exam Vital Signs: Last Vital Signs Pulse 60 06/22/24 13:14 BP 110/60 06/22/24 13:14 BMI result Body Mass Index 19.1 Const General: cooperative, healthy appearing, comfortable and no acute distress Orientation/consciousness: patient oriented x3 Neck Neck: Yes normal visual inspection Resp Effort & Inspection: normal respiratory effort Auscultation: clear to auscultation bilaterally, no crackles, no rales, no rhonchi, no wheezes and diminished lung sounds Cardio Jugular venous distension: no JVD Rate: regular rate Rhythm: regular rhythm Heart sounds: S1 normal heart sound present, S2 normal heart sound present, no murmurs and no rubs Neuro General: patient oriented x3 Extrem General: Yes normal to inspection and No no pedal edema Psych Appearance: grossly normal Mental Status: mental status grossly normal Speech and movement: Normal speech and movement present Office Procedures EKG Details: EKG shows normal sinus rhythm with normal EKG. [id number]-Kokfwftvfrblnukbo, Complete Assessment & Plan Assessment & Plan (1) Paroxysmal A-fib: Code(s): I48.0 - Paroxysmal atrial fibrillation Category: Medical Plan: Highly symptomatic paroxysmal atrial fibrillation has done very well with rhythm control approach and with flecainide therapy. Continue rhythm control approach. Continue flecainide therapy. Although I would be very careful giving a prescription if she does not have regular EKGs performed every 6 months. This was discussed with her. Continue with concomitant atenolol therapy to reduce rapid AV conduction. No indication for oral anticoagulation therapy. Avoidance of stimulants was discussed. Complete smoking cessation was discussed. Will follow up in the clinic in 6 months for EKG in 1 year with me. Thank you for allowing me to partake in his care Coding Level of Care Code Est Pt Level 4 (17693) Complex EM visit Add On G2211 Diagnoses Paroxysmal A-fib I48.0 CPT Codes EKG - CPT: 38750-Gawgylzbixihlmrge, Complete ([id number])
[2024-06-22 13:14] VITALS: BP 110/60; PULSE 60; BMI 19.1
== END 2024-06-22 13:47 | disposition home or self-care (01) ==
PROVIDERS: PCP Nurse Practitioner Family; Visit Provider Internal Medicine Cardiovascular Disease
DX: I48.0 Paroxysmal atrial fibrillation (principal)
CPT/HCPCS: 93010; 99214; G2211

== ENCOUNTER → 2024-06-22 12:58 | Outpatient (BNVA) | payer OTHER, SELFPAY | PROVIDERS: PCP Nurse Practitioner Family; Visit Provider Internal Medicine Cardiovascular Disease | DX: I48.0 Paroxysmal atrial fibrillation (principal) | CPT/HCPCS: 93005; 99212 ==

== ENCOUNTER 2024-08-06 13:50 | Outpatient (AMB) | payer OTHER, SELFPAY ==
[2024-08-06 13:57] VITALS: BP 108/62; PULSE 63; RESP 12; TEMP 36.6; O2SAT 94; BMI 18.6
--- NOTE | 2024-08-06 13:57 | A.OFFPC_ITS ---
Vital Signs 08/06/24 13:57 Height 5 ft 5 in Weight 112 lb BMI 18.6 BP 108/62 Blood Pressure Location Lt brachial Position Sitting Respiration 12 Pulse 63 Pulse Source Pulse Oximeter Temp 97.8 F Temp Source Oral Pulse Oximetry (%) 94 Oxygen Delivery Method Room Air Intake Visit Reasons: Annual PE Intake Note: pt is here for annual exam Pharmacy Picking Technician Required: No Accompanied by: Self / Same As Patient Allergies codeine [CODEINE] Allergy (Unknown, Verified 08/06/24 13:57) RASH isosorbide [ISOSORBIDE] Allergy (Unknown, Verified 08/06/24 13:57) FEEL LIKE IM HAVING HEART ATTACK--CP/SOB Sulfa (Sulfonamide Antibiotics) [SULFA (SULFONAMIDE ANTIBIOTICS)] Allergy (Unknown, Verified 08/06/24 13:57) RASH Medication List - Last Reconciled 08/06/24 by SUSAN LaraP- amlodipine 5 mg PO DAILY aspirin (Adult Aspirin Regimen) 81 mg PO DAILY atenolol 12.5 mg (1/2 x 25 mg) PO DAILY 90 days carisoprodol 350 mg PO TID 30 days cetirizine 10 mg PO DAILY diazepam 10 mg PO BID PRN 30 days flecainide 100 mg PO BID 90 days gabapentin 900 mg (3 x 300 mg) PO TID meloxicam 15 mg PO DAILY quetiapine 50 mg PO BEDTIME 90 days Tobacco use date assessed: 08/06/24 Dental Screening Dental Screen Date: 08/06/24 Did you have a dental visit in the last 12 months?: Yes Did you have a dental problem in the last 6 months where you did not have access to dental care?: No Was dental information given to patient?: Patient has dentist HPI Annual PE HPI Details History of Present Illness The patient is a 54-year-old female presenting with symptoms of depression and anxiety exacerbated by the impending five-year anniversary of her 's passing. The patient reports being tearful and experiencing a notable decrease in appetite, which she attributes to her depression and substantial weight loss. She has smoked approximately half a pack of cigarettes daily since age 9. The patient denies any suicidal or homicidal ideation and reports no issues with constipation, diarrhea, nausea, vomiting, fever, chills, chest pain, or shortness of breath. Previous interventions include regular cardiology follow- ups, and she has been referred to behavioral health for possible telehealth grief counseling sessions. Her anxiety and depression have contributed to a skinny stature, suggestive of ongoing nutritional deficit as she reports a lack of desire to eat. Lastly, insomnia reported. Will increase her seroquel. Health Maintenance - Referral to low-dose CT scan for lung cancer screening due to tobacco use - Pulmonary function testing (PFT) order ed - Referral to a reproduction specialist for further evaluation of smoking-related risks - Mammogram ordered and pending - Colonoscopy is current - Discussion on the importance of nutrit ional intake and physical activity for muscle mass maintenance Social History - Smokes approximately half a pack of ci garettes daily since age 9 - Experiences significant grief, the ansley roaching anniversary of spouse's causing emotional distress - Very slender stature potentially linke d to depression - Reports poor nutritional intake, reduc ed appetite due to mental health issues - Avoids leaving the house, indicative o f possible social withdrawal Review of Systems - Psychiatric: Reports anxiety and depre ssion; denies suicidal or homicidal ideation - Gastrointestinal: Denies constipation, diarrhea, nausea, vomiting - Constitutional: Denies fever, chills - Respiratory: Denies shortness of breat h - Cardiovascular: Denies chest pain Physical Exam General: Cooperative, healthy appearing, comfortable, no acute distress and well developed, but very skinny stature Orientation: Patient oriented x3 Limitations: No limitations Head: Normal to inspection Ears: Hearing grossly normal bilaterally Nose: Normal external nose present Face and sinus: Normal facial exam Eyes: Teary-eyed appearance Neck: Normal visual inspection and Yes full ROM Respiratory: Normal respiratory effort and able to speak in complete sentences. Clear to auscultation bilaterally, but diminished Cardiovascular: Regular rate and rhythm. Normal S1 and S2 GI: Normal to inspection. Soft to palpation and nontender Skin: No rashes or lesions noted Neuro: Patient oriented x3 Extremities: Normal to inspection, but starting to lose muscle mass Results - Mammogram: Ordered - Colonoscopy: Up to date Plan - Depression and anxiety: Discussion led to referral to behavioral health specialist for possible telehealth grief counseling. - Tobacco use disorder: Referral to low- dose CT for lung cancer screening; PFT testing arranged; referral to pulmonology for assessment. - General health maintenance: Mammogram ordered to assess breast health; reinforced the necessity of adequate nutrition and physical activity. Patient was informed and verbally consented to the use of an ambient scribe for clinic note documentation during this visit. Discussion Notes I discussed with the patient the significance of addressing her mental health concerns, particularly in light of the upcoming anniversary of a traumatic event. We talked about the range of counseling options available and emphasized the need for consistent nutritional intake and physical activity to prevent further physical deterioration. Risks associated with her smoking habit were discussed, and I recommended a low-dose CT scan as a preventive measure against lung cancer, along with a PFT to evaluate her respiratory health. We explored options for telehealth counseling, and the patient understands the need for regular follow-up. Patient Instructions - Continue with the ordered mammogram as scheduled. - Follow through with the referrals for counseling and pulmonary evaluation. - Prioritize nutritional intake, aiming for balanced meals to support physical health. - Engage in regular physical activity to maintain muscle mass and well-being. - Attend follow-up appointments as sched uled, and reach out if any new symptoms arise. [facility] Medical History (Updated 08/06/24 @ 17:48 by EMRE Lara) Hypertension Insomnia Depression Skin cancer Vasospastic angina Cervical neck pain with evidence of disc disease Dyslipidemia COPD (chronic obstructive pulmonary disease) Paroxysmal A-fib Aphasia Reflex sympathetic dystrophy Surgical History H/O lymph node biopsy History of hemorrhoidectomy History of partial hysterectomy History of tubal ligation Family History Father Brain cancer Mother Obesity Anxiety Mental health disorder Maternal Grandmother Breast cancer Maternal Grandfather Lung cancer Smoker Paternal Grandfather Heart disease Paternal Grandmother Breast cancer Diabetes mellitus Brother Mental health disorder Son Mental health disorder Paternal Uncle Substance use disorder Family/Other No problems noted. Family/Other Substance use disorder Social History Housing: House Patient Tobacco Use Status: Current everyday Tobacco user Cigarettes Per Day: 7 e-Cigarette/Vaping Use: Never Used Second Hand Smoke Exposure: Yes Current occupational status: disabled Cognitive needs: No Hearing needs: No Vision needs: No Questionnaire PHQ-9 Over the last 2 weeks, how often have you been bothered by any of the following problems? 1. Little interest or pleasure in doing things: several days 2. Feeling down, depressed, or hopeless: several days 3. Trouble falling or staying asleep, or sleeping too much: more than half the days 4. Feeling tired or having little energy: more than half the days 5. Poor appetite or overeating: several days 6. Feeling bad about yourself - or that you are a failure or have let yourself or your family down: several days 7. Trouble concentrating on things, such as reading the newspaper or watching television: not at all 8. Moving or speaking so slowly that other people could have noticed. Or the opposite - being so fidgety or restless that you have been moving around a lot more than usual: not at all 9. Thoughts that you would be better off or of hurting yourself in some way: not at all Total score: 8 Depression Screening Interpretation: Positive Depression Screening Done: Yes 07208 - PHQ-9 Billing: Yes Source: Developed by Drs. Yvon Hill, Anu Meeks, Franko Mendez and colleagues, with an educational jason from [employer]. Thrive Questionnaire Date Thrive assessed: 08/06/24 I am a: Patient What is your living situation today?: I have a steady place to live Within the past 12 months, did the food you bought not last and you didn't have the money to get more?: Often true Within the past 12 months, did you worry whether your food would run out before you got money to buy more?: Often true Do you have trouble paying for medicines?: No Do you have trouble getting transportation to medical appointments?: Yes Do you have trouble paying your heating and electricity bill?: Yes Do you have trouble taking care of your child, family member or friend?: No Do you have trouble with day-to-day activities such as bathing, preparing meals, shopping, managing finances, etc.?: No Are you currently unemployed and looking for a job?: No Are you interested in more education?: No Please select the resources that you would like help with: Food and Utilities Currently or been in a relationship where the following occur: I choose not to answer THRIVE Score: 4 AUDIT C Alcohol Use Questionnaire (AUDIT-C) 1. How often do you have a drink containing alcohol?: Never 3. How often do you have six or more drinks on one occasion?: Never Total Score: 0 Score Reviewed/Action Taken: Yes FRITZ-7 AMB Questionnaire FRITZ-7 Date FRITZ - 7 assessed: 08/06/24 Feeling nervous, anxious, or on edge: 1 = Several days Not being able to stop or control worryin = Several days Worrying too much about different things: 1 = Several days Trouble relaxin = Several days Being so restless that it is hard to sit still: 0 = Not at all Becoming easily annoyed or irritable: 1 = Several days Feeling afraid as if something awful might happen: 0 = Not at all Total FRITZ-7 score (0-4 normal; 5-9 mild; 10-14 moderate; 15-21 severe): 5 Source: Developed by Drs. Yvon Hill, Anu Meeks, Franko Mendez and colleagues, with an educational jason from [employer]. FRITZ-7 Assessment Billing FRITZ-7 Assessment Tool: FRITZ-7 Assessment 30172 Physical exam (Primary Care) Vital Signs: Last Vital Signs Temp 97.8 F 08/06/24 13:57 Pulse 63 08/06/24 13:57 Resp 12 08/06/24 13:57 BP 108/62 08/06/24 13:57 Pulse Ox 94 08/06/24 13:57 Oxygen Delivery Method Room Air 08/06/24 13:57 BMI result Body Mass Index 18.6 Tobacco/Smoking Status: Tobacco use Status Tobacco use date assessed 08/06/24 08/06/24 13:58 Patient Tobacco Use Status Current everyday Tobacco 08/06/24 13:58 e-Cigarette/Vaping Use Never Used 08/06/24 13:58 PHQ-9: PHQ-9 Score PHQ-9: Total score 8 08/06/24 17:44 Depression Screening Interpretation: Positive Thrive Assessment: Date of Thrive Assessment Date Thrive assessed 08/06/24 08/06/24 13:58 Currently or been in a relationship where the following occur: I choose not to answer Office Procedures Flu Questionnaire Does the patient have a severe egg allergy?: No Does the patient have severe life threatening allergies?: No Does the patient have a fever or illness today?: No Has the patient ever had Guillain-[place] Syndrome?: No Has the patient ever had any past reaction to a flu shot?: No Immunizations Fluarix Triv [id number] (PF) 45 mcg (15 mcg x 3)/0.5 mL IM syringe Performing Provider: EMRE Lara [place] [facility] Administered by: Vasquez Galdamez CMA on 08/06/24 14:37 Dose Route Admin Location Dispensed Lot Number Expiration Date NDC Sewing Machine Adjuster 0.5 mL IM Right Deltoid 0.5 mL [id number] 01/11/25 [id number] 1SDK VIS Given Date VIS Provided VIS Publication Date 08/06/24 Single Vaccine 21 Eligibility Eligibility Date Funding Source Not [facility] Eligible 08/06/24 Private Coding Level of Care Code Est Pt Prev Care 40-64y(47765) Diagnoses Smoker F17.200 Physical exam Z00.00 Insomnia G47.00 Depression F32.9 Grief F43.21 Additional Codes FRITZ-7 Assessment Billing - FRITZ-7 Assessment Tool: FRITZ-7 Assessment 94594 ([id number]) PHQ-9 - 75286 - PHQ-9 Billing: Yes ([id number]) Assessment & Plan Assessment & Plan (1) Smoker: Code(s): F17.200 - Nicotine dependence, unspecified, uncomplicated Category: Social Hx (2) Physical exam: Code(s): Z00.00 - Encounter for general adult medical examination without abnormal findings Category: Medical (3) Insomnia: Code(s): G47.00 - Insomnia, unspecified Category: Medical (4) Depression: Code(s): F32.9 - Major depressive disorder, single episode, unspecified Category: Medical (5) Grief: Code(s): F43.21 - Adjustment disorder with depressed mood Category: Medical Plan . Orders: Orders PFT pulmonary function test Today F17.200 - Nicotine dependence, unspecified, uncomplicated Complete Blood Count Auto Diff Today Z00.00 - Encounter for general adult medical examination without abnormal findings UA CC w/rflx Micro + Cult Today Z00.00 - Encounter for general adult medical examination without abnormal findings MM screening mammo BI Today Z12.31 - Encounter for screening mammogram for malignant neoplasm of breast Influenza [id number] Immunization Today Z23 - Encounter for immunization Comprehensive [place]. Panel Fast Today Z00.00 - Encounter for general adult medical examination without abnormal findings TSH reflex Free T4 Today Z00.00 - Encounter for general adult medical examination without abnormal findings Lipid Panel Today Z00.00 - Encounter for general adult medical examination without abnormal findings Referrals Pulmonology Referral F17.200 - Nicotine dependence, unspecified, uncomplicated Lung Cancer Screening Referral F17.200 - Nicotine dependence, unspecified, uncomplicated Medications: New guaifenesin ER 600 mg PO Q12H PRN 60 tabs 0RF congestion 30 days Changed From quetiapine 50 mg PO BEDTIME 90 days 90 tabs 2RF To quetiapine 100 mg PO BEDTIME 90 tabs 0RF 90 days
== END 2024-08-06 15:13 | disposition home or self-care (01) ==
PROVIDERS: PCP Nurse Practitioner Family; Visit Provider Nurse Practitioner Family
DX: F17.200 Nicotine dependence, unspecified, uncomplicated (principal); Z00.00 Encounter for general adult medical examination without abnormal findings; G47.00 Insomnia, unspecified; F32.9 Major depressive disorder, single episode, unspecified; F43.21 Adjustment disorder with depressed mood; Z23 Encounter for immunization

== ENCOUNTER → 2024-08-06 13:50 | Outpatient (BNVA) | payer OTHER, SELFPAY | PROVIDERS: PCP Nurse Practitioner Family; Visit Provider Nurse Practitioner Family | DX: Z00.00 Encounter for general adult medical examination without abnormal findings (principal); Z23 Encounter for immunization; G47.00 Insomnia, unspecified; F32.9 Major depressive disorder, single episode, unspecified; F43.21 Adjustment disorder with depressed mood; F17.200 Nicotine dependence, unspecified, uncomplicated; Z71.6 Tobacco abuse counseling | CPT/HCPCS: 90471; 90656; 96127; 99396 ==

== ENCOUNTER → 2024-09-10 10:24 | Outpatient (BNVA) | payer OTHER, SELFPAY | PROVIDERS: PCP Nurse Practitioner Family ==

== ENCOUNTER 2024-09-25 15:08 | Outpatient (AMB) | payer OTHER, SELFPAY ==
[2024-09-25 15:10] VITALS: BP 122/80; PULSE 93; O2SAT 93; BMI 18.8
--- NOTE | 2024-09-25 15:10 | A.OFFVIS_ITS ---
Vital Signs 09/25/24 15:10 Height 5 ft 5 in Weight 113 lb BMI 18.8 BP 122/80 Blood Pressure Location Lt brachial Position Sitting Pulse 93 Pulse Source Doppler Pulse Oximetry (%) 93 Oxygen Delivery Method Room Air Intake Visit Reasons: Nicotine Dependence Allergies codeine [CODEINE] Allergy (Unknown, Verified 09/25/24 15:14) RASH isosorbide [ISOSORBIDE] Allergy (Unknown, Verified 09/25/24 15:14) FEEL LIKE IM HAVING HEART ATTACK--CP/SOB Sulfa (Sulfonamide Antibiotics) [SULFA (SULFONAMIDE ANTIBIOTICS)] Allergy (Unknown, Verified 09/25/24 15:14) RASH HPI HPI Nicotine Dependence: Details: 54-year-old lady, active 20+ year smoker, trying to quit with likely underlying COPD currently controlled on Symbicort 80 and albuterol MDI referred for further evaluation. Patient states that she does have history of COPD and lung cancer in her mother. She does complain of some dyspnea on exertion when climbing several flights of stairs. Patient that also complain of year-round allergies. She does have dogs as pets. Patient was employed with no exposure to industrial dusts. [facility] Medical History (Updated 09/25/24 @ 15:32 by Ty Lpoez MD) Hypertension Insomnia Depression Skin cancer Vasospastic angina Cervical neck pain with evidence of disc disease Dyslipidemia COPD (chronic obstructive pulmonary disease) Paroxysmal A-fib Aphasia Reflex sympathetic dystrophy Surgical History H/O lymph node biopsy History of hemorrhoidectomy History of partial hysterectomy History of tubal ligation Family History Father Brain cancer Mother Obesity Anxiety Mental health disorder Maternal Grandmother Breast cancer Maternal Grandfather Lung cancer Smoker Paternal Grandfather Heart disease Paternal Grandmother Breast cancer Diabetes mellitus Brother Mental health disorder Son Mental health disorder Paternal Uncle Substance use disorder Family/Other No problems noted. Family/Other Substance use disorder Social History (Updated 09/25/24 @ 15:16 by Edna Correia Caesar) Housing: House Patient Tobacco Use Status: Current everyday Tobacco user Tobacco use type: Cigarette Cigarettes Per Day: 4 Years Smoked: started age 9, 0.5 PPD, e-Cigarette/Vaping Use: Never Used Second Hand Smoke Exposure: Yes Current occupational status: disabled Cognitive needs: No Hearing needs: No Vision needs: No Review of Systems Const Denies daytime sleepiness, Denies excessive sweating, Denies fatigue, Denies fever(s), Denies lethargy, Denies malaise, Denies night sweats, Denies snoring and Denies weight loss Eyes Denies blurry vision and Denies itchy eyes ENT Denies nasal congestion, Denies post nasal drip, Denies sinus pain, Denies sinus pressure and Denies other ( Thrush) Card Denies chest pain, Denies pedal edema, Denies dyspnea, Reports dyspnea on ex ertion, Denies orthopnea and Denies paroxysmal nocturnal dyspnea Resp Denies cough, Denies hemoptysis, Denies excessive phlegm production, Denies dyspnea, Reports dyspnea on exertion, Denies snoring and Denies wheezing GI Denies abdominal pain and Denies heartburn Musc Denies myalgias, Denies arthralgias and Denies joint swelling Skin/Breast Denies rash Neuro Denies memory loss and Denies seizure-like activity Psych Denies abnormal sleep pattern, Denies anxiety and Denies memory loss Endo Denies excessive sweating, Denies fatigue and Denies heat intolerance Cody/Lymph Denies easy bruising Aller/Immun Denies itchy eyes, Denies seasonal rhinorrhea and Denies wheezing Physical Exam Vital Signs: Last Vital Signs Pulse 93 09/25/24 15:10 BP 122/80 09/25/24 15:10 Pulse Ox 93 09/25/24 15:10 Oxygen Delivery Method Room Air 09/25/24 15:10 BMI result Body Mass Index 18.8 Const General: no acute distress and alert Nutritional Appearance: not obese Orientation/consciousness: Other orientation findings ( oriented) HEENT Head: Yes atraumatic Eyes General: appearance normal, both eyes and all related structures Sclerae: sclerae normal EOM: EOMs intact bilaterally Neck Neck: Yes supple Lymphatic: no lymphadenopathy noted Resp Effort & Inspection: normal respiratory effort and no use of accessory muscles Auscultation: clear to auscultation bilaterally Cardio Rate: regular rate Rhythm: regular rhythm Heart sounds: no gallops, no murmurs and no rubs Skin General skin exam: other ( warm) Extrem General: No clubbing, No cyanosis and No edema Assessment & Plan Assessment & Plan (1) Smoker: Code(s): F17.200 - Nicotine dependence, unspecified, uncomplicated Category: Medical Plan: Will obtain lung cancer screening CT chest. (2) Environmental allergies: Code(s): Z91.09 - Other allergy status, other than to drugs and biological substances Category: Medical Plan: Will obtain IgE level, CBC with differential, and RAST panel for further evaluation. (3) Shortness of breath: Code(s): R06.02 - Shortness of breath Category: Medical Plan: Likely underlying COPD and/or asthma/COPD overlap syndrome. Will obtain full PFT and continue on current regimen of Symbicort and albuterol MDI. Orders: Orders Resp Allergy Profile Region I Today Z91.09 - Other allergy status, other than to drugs and biological substances Complete Blood Count Auto Diff Today Z91.09 - Other allergy status, other than to drugs and biological substances PFT pulmonary function test Today R06.02 - Shortness of breath CT lung screening Today F17.200 - Nicotine dependence, unspecified, uncomplicated Coding Level of Care Code New Pt Level 4 (14522) Diagnoses Smoker F17.200 Environmental allergies Z91.09 Shortness of breath R06.02
== END 2024-09-25 15:37 | disposition home or self-care (01) ==
LOC: HO.HPS 15:08
PROVIDERS: PCP Nurse Practitioner Family; Referring Provider Nurse Practitioner Family; Visit Provider Internal Medicine Pulmonary Disease
DX: F17.200 Nicotine dependence, unspecified, uncomplicated (principal); Z91.09 Other allergy status, other than to drugs and biological substances; R06.02 Shortness of breath
CPT/HCPCS: 99204

== ENCOUNTER → 2024-09-25 15:08 | Outpatient (BNVA) | payer OTHER, SELFPAY | PROVIDERS: PCP Nurse Practitioner Family; Referring Provider Nurse Practitioner Family; Visit Provider Internal Medicine Pulmonary Disease | DX: R06.02 Shortness of breath (principal); F17.210 Nicotine dependence, cigarettes, uncomplicated; Z80.1 Family history of malignant neoplasm of trachea, bronchus and lung; Z83.6 Family history of other diseases of the respiratory system; Z91.09 Other allergy status, other than to drugs and biological substances; Z79.899 Other long term (current) drug therapy | CPT/HCPCS: 99202 ==

== ENCOUNTER → 2024-10-05 14:54 | Outpatient (BNVA) | payer OTHER, SELFPAY | PROVIDERS: PCP Nurse Practitioner Family ==

== ENCOUNTER → 2024-10-07 13:21 | Outpatient (BNVA) | payer OTHER, SELFPAY | PROVIDERS: PCP Nurse Practitioner Family; Visit Provider Dietitian, Registered ==

== ENCOUNTER 2024-10-08 10:17 | Outpatient (AMB) | payer OTHER, SELFPAY ==
--- NOTE | 2024-10-08 10:20 | AM.OFFWIN_ITS ---
Intake Vital Signs 10/08/24 10:21 Weight 114 lb BP 120/90 H Blood Pressure Location Rt brachial Position Sitting Pulse 58 Pulse Source Pulse Oximeter Pulse Oximetry (%) 100 Oxygen Delivery Method Room Air Intake Visit Reasons: EP ? fracture LT wrist Intake Note: Patient here for left wrist pain after a fall down some stairs last night. she states she was pulled by her dog and landed on her left hand. Patient Tobacco Use Status: Current everyday Tobacco user Allergies codeine [CODEINE] Allergy (Unknown, Verified 10/08/24 10:23) RASH isosorbide [ISOSORBIDE] Allergy (Unknown, Verified 10/08/24 10:23) FEEL LIKE IM HAVING HEART ATTACK--CP/SOB Sulfa (Sulfonamide Antibiotics) [SULFA (SULFONAMIDE ANTIBIOTICS)] Allergy (Unknown, Verified 10/08/24 10:23) RASH Do you need a note to return to daycare/school/sports/work: No HPI HPI Comments History of Present Illness Details 54 y/o female patient [facility]/o Left wrist/hand injury from a Fall. Pt reports a fall down some stairs last night when her Dog pulled her down and landed on her left hand. REPLACED BY [facility] Medical History (Updated 10/08/24 @ 10:30 by Sherron Stanton NP) Left wrist injury Hypertension Insomnia Depression Skin cancer Vasospastic angina Cervical neck pain with evidence of disc disease Dyslipidemia COPD (chronic obstructive pulmonary disease) Paroxysmal A-fib Aphasia Reflex sympathetic dystrophy Surgical History H/O lymph node biopsy History of hemorrhoidectomy History of partial hysterectomy History of tubal ligation Family History Father Brain cancer Mother Obesity Anxiety Mental health disorder Maternal Grandmother Breast cancer Maternal Grandfather Lung cancer Smoker Paternal Grandfather Heart disease Paternal Grandmother Breast cancer Diabetes mellitus Brother Mental health disorder Son Mental health disorder Paternal Uncle Substance use disorder Family/Other No problems noted. Family/Other Substance use disorder Social History (Updated 09/25/24 @ 15:16 by LALO Velez) Housing: House Patient Tobacco Use Status: Current everyday Tobacco user Tobacco use type: Cigarette Cigarettes Per Day: 4 Years Smoked: started age 9, 0.5 PPD, e-Cigarette/Vaping Use: Never Used Second Hand Smoke Exposure: Yes Current occupational status: disabled Cognitive needs: No Hearing needs: No Vision needs: No Review of Systems Const All systems reviewed & are unremarkable except as noted in HPI and below Physical Exam Vital Signs: Last Vital Signs Pulse 58 10/08/24 10:21 BP 120/90 H 10/08/24 10:21 Pulse Ox 100 10/08/24 10:21 Oxygen Delivery Method Room Air 10/08/24 10:21 Const General: no acute distress; No comfortable Nutritional Appearance: well nourished Orientation/consciousness: patient oriented x3 Neuro General: patient oriented x3, gait normal and moves all extremities Extrem Left upper extremity: hand Details: normal capillary refill, tenderness Location: of the dorsal hand Location: distally, over the radial aspect and over the ulnar aspect, abnormal ROM of finger Details: pain with active ROM, pain with passive ROM and unable to flex or extend and swelling Location: of the dorsal hand; no lacerations, no ecchymosis and no crepitus Psych Speech and movement: Normal speech and movement present Assessment & Plan Assessment & Plan (1) Left wrist injury: Code(s): S69.92XA - Unspecified injury of left wrist, hand and finger(s), initial encounter Qualifiers: Encounter type: initial encounter Qualified Code(s): S69.92XA - Unspecified injury of left wrist, hand and finger(s), initial encounter Plan: Ordered Xray. Wrist/Hand Brace Ice/Hot NSAIDs for pain relief. Orders: Orders XR hand wrist LT Today S69.92XA - Unspecified injury of left wrist, hand and finger(s), initial encounter Medications: New acetaminophen 1,000 mg (2 x 500 mg) PO Q6H PRN 30 caps 0RF pain S69.92XA - Unspecified injury of left wrist, hand and finger(s), initial encounter Coding Level of Care Code Est Pt Level 4 (71820) Diagnoses Injury of left wrist, initial encounter S69.92XA Encounter type: initial encounter Time Spent (min) 20
[2024-10-08 10:21] VITALS: BP 120/90; PULSE 58; O2SAT 100
== END 2024-10-08 11:58 | disposition home or self-care (01) ==
PROVIDERS: PCP Nurse Practitioner Family; Visit Provider Nurse Practitioner Family
DX: S69.92XA Unspecified injury of left wrist, hand and finger(s), initial encounter (principal)

== ENCOUNTER 2024-10-08 10:17 | Outpatient (REF) | payer OTHER, SELFPAY ==
--- NOTE | ~2024-10-08 | XR_ITS ---
CLINICAL HISTORY: S69.92XA - Unspecified injury of left wrist, hand and finger(s), initial... 3 view left hand Comparison: None Findings: Bones intact. No dislocations. 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 No erosions. No radiopaque foreign body. There appears to be increased density of the lunate and avascular necrosis is not excluded. IMPRESSION: 1. 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 2. There appears to be increased density of the lunate and avascular necrosis/[place] disease is not excluded. Please correlate with CT or MRI of the wristto exclude this. This document has been electronically signed by: Ted Camacho MD on 10/08/2024 11:28:11
[2024-10-08 13:08] LABS: MANUAL DIFF FLAG NO
[2024-10-08 13:23] LABS: Basophils Percent Auto 0.2 % (0-2); Eosinophils Percent Auto 0.2 % (0-4); Hematocrit 50.7 % (37.0-47.0); Hemoglobin 17.6 g/dl (12.0-16.0); Imm Gran Abs Auto 0.07 X10*3/uL (0.00-0.03); Imm Gran Pct Auto 0.5 % (0.0-0.4); Lymphocytes Absolute Auto 2.2 X10*3/uL (1.2-4.9); Lymphocytes Percent Auto 16.8 % (20-40); Mean Corpuscular HGB Conc 34.7 g/dl (31.0-35.0); Mean Corpuscular Hemoglobin 31.3 pg (27.0-33.0); Mean Corpuscular Volume 90.2 fL (80.0-98.0); Mean Platelet Volume 10.7 fL (9.4-12.3); Monocytes Absolute Auto 0.8 X10*3/uL (0.1-1.2); Monocytes Percent Auto 6.4 % (2-11); Neutrophils Absolute Auto 9.9 x10*3/uL (2.0-8.3); Neutrophils Percent Auto 75.9 % (45-73); Platelet Count 314 X10*3/uL (160-400); Red Blood Count 5.62 X10*6/uL (4.20-5.50); Red Cell Distribution Width 13.2 % (11.0-16.0); White Blood Count 13.1 X10*3/uL (4.8-10.8)
[2024-10-08 14:11] LABS: Erythrocyte Sedimentation Rate 2 MM/HR (0-20)
[2024-10-08 14:20] LABS: Alanine Aminotransferase 20 U/L (0-31); Albumin Level 4.7 g/dL (3.5-5.0); Alkaline Phosphatase 72 U/L (39-117); Anion Gap 14 (12-20); Aspartate Amino Transferase 29 U/L (5-31); Bilirubin Total 0.6 mg/dL (0.0-1.0); Blood Urea Nitrogen 14 mg/dL (9-16); C Reactive Protein 0.19 mg/dL (< or = 0.50); Calcium 10.2 mg/dL (8.4-10.2); Carbon Dioxide 27 mmol/L (22-29); Chloride 100 mmol/L (96-108); Cholesterol 347 mg/dL (<200); Estimated Glomerular Filt Rate 55; Glucose Fasting 91 mg/dL (60-99); HDL Cholesterol 73 mg/dL (>40); LDL Cholesterol Calculated 240 mg/dL (<100); Potassium 4.4 mmol/L (3.3-5.1); Sodium 137 mmol/L (135-145); Total Protein 8.2 g/dL (6.5-8.0); Triglycerides 174 mg/dL (<150)
[2024-10-08 14:38] LABS: TSH reflex Free T4 2.35 uIU/mL (0.32-4.0)
[2024-10-09 08:20] LABS: HBc Num1 0.08 S/CO (0.00-0.79); HBsAGNum1 0.34 S/CO (0.00-0.99); HIV AB/AG Nonreactive (Nonreactive); HIV Num 1 0.09 S/CO (0.00-0.99); Hepatitis A Antibody IgM 0.12 Index (0-0.79); Hepatitis B Core Antibody Nonreactive (Nonreactive); Hepatitis B Surface Antigen Negative (Negative); ~HepC Num1 0.15 S/CO (0.00-0.79); ~Hepatitis A Antibody IgM Nonreactive (Nonreactive); ~Hepatitis B Surface Antibody REACTIVE (Nonreactive); ~Hepatitis C Antibody Nonreactive (Nonreactive)
[2024-10-16 09:34] LABS: Class Alternaria alternata 0; Class Aspergillus fumigatus 0; Class Bermuda Grass 0; Class Birch 0; Class Cat Dander 0; Class Cladosporium herbarum 0; Class Cockroach 0; Class Common Ragweed 0; Class Cottonwood 0; Class Derm. pterony 0; Class Dermatophagoides farinae 0; Class Dog Dander 0; Class Elm 0; Class Maple Box Elder 0; Class Mountain Cedar 0; Class Mouse Urine Protein 0; Class Mugwort 0; Class Oak 0; Class Penicillium crysogenum 0; Class Rough Pigweed 0; Class Sheep Sorrel 0; Class Sycamore 0; Class Timothy Grass 0; Class Walnut Tree 0; Class White Ash 0; Class White Mulberry 0; D001 IgE D pteronyssinus <0.10 kU/L; D002 - IgE D farinae <0.10 kU/L; E001 - IgE Cat Dander <0.10 kU/L; E005 - IgE Dog Dander <0.10 kU/L; E072-IgE Mouse Urine <0.10 kU/L; G002 IgE Bermuda Grass <0.10 kU/L; G006 - IgE Timothy Grass <0.10 kU/L; I006-IgE Cockroach, German <0.10 kU/L; Immunoglobulin E 85 kU/L (<OR=114); M001 IgE Penicillium chrysogen <0.10 kU/L; M002 - IgE Cladosporium herbar <0.10 kU/L; M003 - IgE Aspergillus fumigat <0.10 kU/L; M006 - IgE Alternaria alternat <0.10 kU/L; T001 IgE Maple/Box Elder <0.10 kU/L; T003 IgE Common Silver Birch <0.10 kU/L; T006 - IgE Cedar, Mountain <0.10 kU/L; T007 - IgE Oak, White <0.10 kU/L; T008 IgE Elm, American <0.10 kU/L; T010 - IgE Walnut <0.10 kU/L; T011 - IgE Maple Leaf Sycamore <0.10 kU/L; T014 - IgE Cottonwood <0.10 kU/L; T015 - IgE Ash, White <0.10 kU/L; T070 - IgE White Mulberry <0.10 kU/L; W001 - IgE Ragweed, Short <0.10 kU/L; W006 - IgE Mugwort <0.10 kU/L; W014 IgE Pigweed, Common <0.10 kU/L; W018 IgE Sheep Sorrel <0.10 kU/L
== END 2024-10-08 10:18 | disposition home or self-care (01) ==
LOC: HO.HMGCX 10:17
PROVIDERS: Internal Medicine Pulmonary Disease; PCP Nurse Practitioner Family; Referring Provider Nurse Practitioner Family; Visit Provider Nurse Practitioner Family
DX: S69.92XA Unspecified injury of left wrist, hand and finger(s), initial encounter (principal); Z00.00 Encounter for general adult medical examination without abnormal findings; R63.4 Abnormal weight loss; Z91.09 Other allergy status, other than to drugs and biological substances
CPT/HCPCS: 36415; 73110; 73130; 80053; 80061; 82785; 84443; 85025; 85652; 86003; 86140; 86704; 86706; 86709; 86803; 87340; 87389; 99212

== ENCOUNTER → 2024-10-08 10:40 | Outpatient (BNV) | payer OTHER, SELFPAY | PROVIDERS: PCP Nurse Practitioner Family; Referring Provider Nurse Practitioner Family; Visit Provider Radiology Diagnostic Radiology | DX: S69.92XA Unspecified injury of left wrist, hand and finger(s), initial encounter (principal) | CPT/HCPCS: 73110; 73130 ==

== ENCOUNTER 2024-10-13 15:02 | Outpatient (REF) | payer OTHER, SELFPAY ==
--- NOTE | ~2024-10-13 | XR_ITS ---
EXAMINATION: XR WRIST, LEFT CLINICAL INFORMATION: M25.532 - Pain in left wrist COMPARISON: 10/08/2024. TECHNIQUE: Four views of the left wrist. FINDINGS: No fracture, dislocation, or suspicious bone lesion. There is anatomical alignment. 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 There is a corticated ossicle abutting the ulnar styloid, likely old ununited fracture. Carpal bones appear otherwise intact and normally aligned. No definite evidence of AVN of the lunate. No discrete soft tissue abnormalities. XR/XR wrist LT w scaphoid IMPRESSION: 1. No acute bony or soft tissue abnormalities. 2. 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 Electronically signed by: Hari Burch MD 10/14/2024 03:27 PM EDT
== END 2024-10-13 15:03 | disposition home or self-care (01) ==
LOC: HO.HOSX 15:02
PROVIDERS: PCP Nurse Practitioner Family; Visit Provider Orthopaedic Surgery
DX: M25.532 Pain in left wrist (principal); S52.502D Unspecified fracture of the lower end of left radius, subsequent encounter for closed fracture with routine healing; M18.12 Unilateral primary osteoarthritis of first carpometacarpal joint, left hand
CPT/HCPCS: 25600; 73110; 99202

== ENCOUNTER 2024-10-13 15:02 | Outpatient (AMB) | payer OTHER, SELFPAY ==
[2024-10-13 15:11] VITALS: BMI 19.0
--- NOTE | 2024-10-13 15:11 | A.OFFVIS_ITS ---
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 States while she was at home, she took her dog for a walk and her dog pulled her with the leash causing patient to fall. Seen at the walk in clinic where xrays were taken and was given a brace. Currently state she has a lot of pain, weakness and swelling. States she is not able to make a fist since date of injury. Denies numbness or tingling. 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 She was seen at a walk-in clinic and fitted for a wrist brace. She complains of pain, weakness, and swelling in her hand & wrist. She says she is not able to make a full fist. She denies any numbness or tingling. [facility] Medical History (Updated 10/13/24 @ 15:30 by Ariel Oconnor) Severe protein-calorie malnutrition Left wrist injury Hypertension Insomnia Depression Skin cancer Vasospastic angina Cervical neck pain with evidence of disc disease Dyslipidemia COPD (chronic obstructive pulmonary disease) Paroxysmal A-fib Aphasia Reflex sympathetic dystrophy Surgical History H/O lymph node biopsy History of hemorrhoidectomy History of partial hysterectomy History of tubal ligation Family History Father Brain cancer Mother Obesity Anxiety Mental health disorder Maternal Grandmother Breast cancer Maternal Grandfather Lung cancer Smoker Paternal Grandfather Heart disease Paternal Grandmother Breast cancer Diabetes mellitus Brother Mental health disorder Son Mental health disorder Paternal Uncle Substance use disorder Family/Other No problems noted. Family/Other Substance use disorder Social History Housing: House Patient Tobacco Use Status: Current everyday Tobacco user Tobacco use type: Cigarette Cigarettes Per Day: 4 Years Smoked: started age 9, 0.5 PPD, e-Cigarette/Vaping Use: Never Used Second Hand Smoke Exposure: Yes Current occupational status: disabled Cognitive needs: No Hearing needs: No Vision needs: No Review of Systems Const All systems reviewed & are unremarkable except as noted in HPI and below Physical Exam Vital Signs: BMI result Body Mass Index 19.0 Const General: cooperative, healthy appearing and no acute distress Orientation/consciousness: patient oriented x3 HEENT Head: Yes normocephalic and Yes atraumatic Eyes EOM: EOMs intact bilaterally Resp Effort & Inspection: normal respiratory effort and able to speak in complete sentences Cardio Jugular venous distension: no JVD Skin General skin exam: turgor normal Rashes: no rashes Neuro General: patient oriented x3 Extrem Other: Evaluation of Left Upper Extremity: The patient is alert, oriented, and in no acute distress Neuro: Median, Ulnar, Radial nerves motor and sensory intact and sensation is normal to the tips of all digits Vascular: Cap refill brisk ROM: We worked on ROM exercises today in clinic Before leaving clinic she could bring her fingers closed to a weak fist and back into full extension No pain with elbow ROM Good elbow ROM Skin: No lacerations or abrasions. General: No Erythema or evidence of infection. Swelling & ecchymosis about the wrist Most tender over the distal radius metaphysis & radial styloid (7/10) Not particularly tender over the length of the ulna Mild scaphoid tubercle tenderness (3/10) No snuffbox tenderness No tenderness about the elbow No pain with proximal forearm squeeze Mildly tender over the basal joint No tenderness over the MCP joint No tenderness over the 1st dorsal compartment or a1 tj Radiographs: 3 views of the left wrist + Scaphoid view were taken today, viewed, and compared to radiographs from 10/08/24 by me today in clinic. They show a non-displaced distal radius metaphyseal fracture. She is reproducibly tender to palpation over this area.. There is basal joint arthritis with joint space narrowing, subchondral sclerosis, and osteophyte formation. Psych Appearance: grossly normal Affect: normal affect Attitude: cooperative Office Procedures AMB Fracture Care Details: Fracture care distal radius [id number] Fracture Billing Code: Fracture Billing Code Assessment & Plan Assessment & Plan (1) Closed fracture of left distal radius: Code(s): S52.502A - Unspecified fracture of the lower end of left radius, initial encounter for closed fracture Category: Medical Plan Assessment & Plan: 1. Left distal radius fracture, non-displaced From a fall, DOI: 10/07/24 I educated her about this condition I discussed operative and non-operative treatment options We will manage this conservatively, and she is in agreement She was placed in a short arm cast, to be worn for the next 3 weeks I discussed activity modifications, she is to lift nothing heavier than a cellphone for the next 4 weeks She will perform gentle finger ROM exercises at home She will follow up in 3 weeks, with X-rays, 3v L wrist+scaphoid, OOP Scribed for Michelle Grady MD by Ariel Oconnor medical staffing coordinator, on 10/13/24 at 3:15 PM, EST. Orders: Orders XR wrist LT w scaphoid Today M25.532 - Pain in left wrist Coding Level of Care Code New Pt Level 4 (94939) Diagnoses Closed fracture of left distal radius S52.502A CPT Codes Fracture Care - Fracture Billing Code: Fracture Billing Code ([id number])
== END 2024-10-13 16:03 | disposition home or self-care (01) ==
LOC: HO.HOS 15:04
PROVIDERS: PCP Nurse Practitioner Family; Visit Provider Orthopaedic Surgery
DX: S52.502A Unspecified fracture of the lower end of left radius, initial encounter for closed fracture (principal); W19.XXXA Unspecified fall, initial encounter
CPT/HCPCS: 25600; 99204

== ENCOUNTER → 2024-10-13 15:35 | Outpatient (BNV) | payer OTHER, SELFPAY | PROVIDERS: PCP Nurse Practitioner Family; Visit Provider Radiology Diagnostic Radiology | DX: M18.12 Unilateral primary osteoarthritis of first carpometacarpal joint, left hand (principal) | CPT/HCPCS: 73110 ==

== ENCOUNTER → 2024-10-14 08:46 | Outpatient (BNVA) | payer OTHER, SELFPAY | PROVIDERS: PCP Nurse Practitioner Family; Visit Provider Dietitian, Registered | DX: D72.829 Elevated white blood cell count, unspecified (principal); F32.A Depression, unspecified; F41.1 Generalized anxiety disorder; Z79.899 Other long term (current) drug therapy | CPT/HCPCS: 96127; 99212 ==

== ENCOUNTER 2024-10-14 13:59 | Outpatient (AMB) | payer OTHER, SELFPAY ==
[2024-10-14 14:01] VITALS: BP 112/70; PULSE 62; O2SAT 97; BMI 19.6
--- NOTE | 2024-10-14 14:01 | MHC.PC.OV ---
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 History of Present Illness The patient is a 54-year-old female presenting with symptoms related to her depression and anxiety near her follow-up appointments. Previously diagnosed with major depressive disorder and generalized anxiety disorder, her mood has been improving since the initiation of Seroquel. She has gained 4 pounds over the last few months, which she attributes to improved nutrition as she works towards achieving better physical health. The patient is also attempting to quit smoking, demonstrating a commitment to healthier lifestyle habits despite current challenges. Pertinent lab results show elevated white blood cell count without accompanying infection symptoms. The elevated levels of cholesterol, LDL, and triglycerides were noted and are being medically managed. Her history of smoking necessitates further investigation into her pulmonary health, with a chest x-ray warranted due to smoking risks. Social History - Engaged in nutritional improvements leading to weight gain. - Currently attempting smoking cessation, acknowledging the challenges but motivated towards quitting. - Reports positive engagement and satisfaction with her therapist. Health Maintenance - Smoking cessation efforts initiated. - Current nutrition improvements noted with weight gain. - Planned initiation of a statin at night for hyperlipidemia. Review of Systems - Respiratory: Denies chest pain, ongoing or exertional dyspnea. - Psychiatric: Denies suicidal or homicidal ideation. Physical Exam General: Cooperative, healthy appearing, comfortable, no acute distress and well developed, skinny stature Orientation: Patient oriented x3 Limitations: No limitations Head: Normal to inspection Ears: Hearing grossly normal bilaterally Nose: Normal external nose present Face and sinus: Normal facial exam Eyes: Appearance normal, both eyes and all related structures Neck: Normal visual inspection and Yes full ROM Respiratory: Scattered wheezes throughout Cardiovascular: Regular rate and rhythm. Normal S1 and S2 GI: Normal to inspection. Soft to palpation and nontender Skin: No rashes or lesions noted Neuro: Patient oriented x3 Extremities: Normal to inspection Results - Labs: Elevated white blood cell count noted. - Lipid Profile: Elevated cholesterol, LDL, and triglycerides. Plan The patient will continue with her current regimen for depression and anxiety with Seroquel, alongside regular therapy sessions that have shown improvement in mood. She will start on a statin at night to address hyperlipidemia. I plan to repeat her complete blood count and lipid panel to monitor her leukocytosis and lipid levels, aiming for improvement in 2-3 months (lipids). Additionally, due to her smoking history and scattered wheezing observed, a chest x-ray is recommended. Her efforts to quit smoking will continue to be supported through available resources and therapeutic measures if required. Discussion Notes I discussed with the patient the plan for continuing Seroquel for her depression due to observed improvements. The benefits of statin therapy were explained in context of her elevated cholesterol levels, clarifying that controlling hyperlipidemia can reduce cardiovascular risks. We reviewed the significance of her leukocytosis, emphasizing the importance of repeating the lab tests to track any pathology. The patient was informed about the need for a chest x-ray to evaluate her lung health owing to smoking history and wheezes on examination. She is encouraged to continue her quit-smoking efforts with our support. We discussed the follow-up course over the next 2-3 months and the importance of coming in sooner if new symptoms arise. Patient Instructions - Continue taking Seroquel as prescribed. - Start taking the statin medication at night as directed for cholesterol management. - Arrange for a chest x-ray as soon as possible. - Focus on maintaining a balanced diet to support weight gain and overall wellness. - Continue efforts to quit smoking and consider support groups if needed. - Schedule a follow-up in 2-3 months for lab work and reassessment. - Seek medical attention immediately if new or worsening symptoms, such as chest pain or difficulty breathing, develop. [facility] Medical History Severe protein-calorie malnutrition Left wrist injury Hypertension Insomnia Depression Skin cancer Vasospastic angina Cervical neck pain with evidence of disc disease Dyslipidemia COPD (chronic obstructive pulmonary disease) Paroxysmal A-fib Aphasia Reflex sympathetic dystrophy Surgical History H/O lymph node biopsy History of hemorrhoidectomy History of partial hysterectomy History of tubal ligation Family History Father Brain cancer Mother Obesity Anxiety Mental health disorder Maternal Grandmother Breast cancer Maternal Grandfather Lung cancer Smoker Paternal Grandfather Heart disease Paternal Grandmother Breast cancer Diabetes mellitus Brother Mental health disorder Son Mental health disorder Paternal Uncle Substance use disorder Family/Other No problems noted. Family/Other Substance use disorder Social History (Reviewed 10/14/24 @ 14:32 by Steve Eng [facility] Housing: House Patient Tobacco Use Status: Current everyday Tobacco user Tobacco use type: Cigarette Cigarettes Per Day: 4 Years Smoked: started age 9, 0.5 PPD, e-Cigarette/Vaping Use: Never Used Second Hand Smoke Exposure: Yes Current occupational status: disabled Cognitive needs: No Hearing needs: No Vision needs: No Questionnaire PHQ-9 Over the last 2 weeks, how often have you been bothered by any of the following problems? 1. Little interest or pleasure in doing things: several days 2. Feeling down, depressed, or hopeless: several days 3. Trouble falling or staying asleep, or sleeping too much: more than half the days 4. Feeling tired or having little energy: more than half the days 5. Poor appetite or overeating: several days 6. Feeling bad about yourself - or that you are a failure or have let yourself or your family down: several days 7. Trouble concentrating on things, such as reading the newspaper or watching television: not at all 8. Moving or speaking so slowly that other people could have noticed. Or the opposite - being so fidgety or restless that you have been moving around a lot more than usual: not at all 9. Thoughts that you would be better off or of hurting yourself in some way: not at all Total score: 8 Depression Screening Interpretation: Positive (denies any SI or HI) Depression Screening Follow-up: Existing condition Depression Screening Done: Yes 68771 - PHQ-9 Billing: Yes Source: Developed by Drs. Yvon Hill, Anu Meeks, Franko Mendez and colleagues, with an educational jason from [employer] Thrive Questionnaire Date Thrive assessed: 08/06/24 I am a: Patient What is your living situation today?: I have a steady place to live Within the past 12 months, did the food you bought not last and you didn't have the money to get more?: Often true Within the past 12 months, did you worry whether your food would run out before you got money to buy more?: Often true Do you have trouble paying for medicines?: No Do you have trouble getting transportation to medical appointments?: Yes Do you have trouble paying your heating and electricity bill?: Yes Do you have trouble taking care of your child, family member or friend?: No Do you have trouble with day-to-day activities such as bathing, preparing meals, shopping, managing finances, etc.?: No Are you currently unemployed and looking for a job?: No Are you interested in more education?: No Currently or been in a relationship where the following occur: I choose not to answer THRIVE Score: 4 AUDIT C Alcohol Use Questionnaire (AUDIT-C) 1. How often do you have a drink containing alcohol?: Monthly or less 2. How many drinks containing alcohol do you have on a typical day when you are drinking?: 1 or 2 3. How often do you have six or more drinks on one occasion?: Never Total Score: 1 Score Reviewed/Action Taken: Yes FRITZ-7 AMB Questionnaire FRITZ-7 Date FRITZ - 7 assessed: 08/06/24 Source: Developed by Drs. Yvon Hill, Franko Chandra and colleagues, with an educational jason from [employer]). Physical exam (Primary Care) Vital Signs: Last Vital Signs Pulse 62 10/14/24 14:01 BP 112/70 10/14/24 14:01 Pulse Ox 97 10/14/24 14:01 Oxygen Delivery Method Room Air 10/14/24 14:01 BMI result Body Mass Index 19.6 Tobacco/Smoking Status: Tobacco use Status Tobacco use date assessed 08/06/24 10/14/24 14:02 Patient Tobacco Use Status Current everyday Tobacco 10/14/24 14:02 Tobacco use type Cigarette 10/14/24 14:02 e-Cigarette/Vaping Use Never Used 10/14/24 14:02 PHQ-9: PHQ-9 Score PHQ-9: Total score 8 10/14/24 14:02 Depression Screening Interpretation: Positive (denies any SI or HI) Depression Screening Follow-up: Existing condition Thrive Assessment: Date of Thrive Assessment Date Thrive assessed 08/06/24 10/14/24 14:02 Currently or been in a relationship where the following occur: I choose not to answer Coding Level of Care Code Est Pt Level 3 (21849) Diagnoses Leukocytosis D72.829 Additional Codes PHQ-9 - 83109 - PHQ-9 Billing: Yes ([id number]) Assessment & Plan Assessment & Plan (1) Leukocytosis: Code(s): D72.829 - Elevated white blood cell count, unspecified Category: Medical Plan . Orders: Orders UA CC w/rflx Micro + Cult Today D72.829 - Elevated white blood cell count, unspecified Complete Blood Count Auto Diff Today D72.829 - Elevated white blood cell count, unspecified Comprehensive Met. Panel Today D72.829 - Elevated white blood cell count, unspecified Medications: New atorvastatin 20 mg PO BEDTIME 90 days 90 tabs 0RF
== END 2024-10-14 14:53 | disposition home or self-care (01) ==
LOC: HO.HMCC 13:59
PROVIDERS: PCP Nurse Practitioner Family; Visit Provider Nurse Practitioner Family
DX: D72.829 Elevated white blood cell count, unspecified (principal)

== ENCOUNTER 2024-11-04 11:07 | Outpatient (REF) | payer OTHER, SELFPAY ==
--- NOTE | ~2024-11-04 | XR_ITS ---
CLINICAL HISTORY: M25.532 - Pain in left wrist 3 view left wrist Comparison: CR - XR HAND WRIST LT - 10/08/24 10:59 EDT Findings: There is a nondisplaced fracture along the distal radius with moderate surrounding edema. Displaced ulnar styloid fracture. Advanced degenerative changes of the base of the left 1st metacarpal. No radiopaque foreign body. IMPRESSION: Nondisplaced distal radial fracture, acute appearing and mildly displaced ulnar styloid fracture, age-indeterminate. This document has been electronically signed by: Raza Sommers MD on 11/07/2024 08:48:28
== END 2024-11-04 11:08 | disposition home or self-care (01) ==
LOC: HO.HOSX 11:07
PROVIDERS: Visit Provider Orthopaedic Surgery
DX: M25.532 Pain in left wrist (principal); S52.502A Unspecified fracture of the lower end of left radius, initial encounter for closed fracture; W17.89XA Other fall from one level to another, initial encounter; Y93.9 Activity, unspecified; Y92.9 Unspecified place or not applicable; Y99.9 Unspecified external cause status; Z46.89 Encounter for fitting and adjustment of other specified devices; Z73.6 Limitation of activities due to disability
CPT/HCPCS: 73110; 99212

== ENCOUNTER 2024-11-04 14:46 | Outpatient (AMB) | payer OTHER, SELFPAY ==
--- NOTE | 2024-11-04 15:01 | A.OFFVIS_ITS ---
Vital Signs 11/04/24 15:02 Height 5 ft 5 in Weight 118 lb BMI 19.6 Intake Visit Reasons: OV c/o Lt wrist/hand injury fall DOI 10/07/24 Intake Note: Alba 54 yr old right hand dominant female presents today for her follow up visit for her left distal radius fracture, non-displaced From a fall, DOI: 10/07/24. Cast removed and xrays updated in office. States she has soreness on her dorsal aspect of wrist. Denies numbness or tingling. Allergies codeine [CODEINE] Allergy (Unknown, Verified 11/04/24 15:03) RASH isosorbide [ISOSORBIDE] Allergy (Unknown, Verified 11/04/24 15:03) FEEL LIKE IM HAVING HEART ATTACK--CP/SOB Sulfa (Sulfonamide Antibiotics) [SULFA (SULFONAMIDE ANTIBIOTICS)] Allergy (Unknown, Verified 11/04/24 15:03) RASH HPI HPI OV c/o Lt wrist/hand injury fall DOI 10/07/24: Details: Alba is a 54 year old right hand dominant woman who returns for her left distal radius fracture, S/P high fall, DOI: 10/07/24. She says she is doing well. She has been working on her ROM at home. She denies any numbness or tingling. She says she does not work and is on disability [facility] Medical History Severe protein-calorie malnutrition Left wrist injury Hypertension Insomnia Depression Skin cancer Vasospastic angina Cervical neck pain with evidence of disc disease Dyslipidemia COPD (chronic obstructive pulmonary disease) Paroxysmal A-fib Aphasia Reflex sympathetic dystrophy Surgical History H/O lymph node biopsy History of hemorrhoidectomy History of partial hysterectomy History of tubal ligation Family History Father Brain cancer Mother Obesity Anxiety Mental health disorder Maternal Grandmother Breast cancer Maternal Grandfather Lung cancer Smoker Paternal Grandfather Heart disease Paternal Grandmother Breast cancer Diabetes mellitus Brother Mental health disorder Son Mental health disorder Paternal Uncle Substance use disorder Family/Other No problems noted. Family/Other Substance use disorder Social History (Updated 11/04/24 @ 15:04 by YASMIN Daniel) Housing: House Patient Tobacco Use Status: Current everyday Tobacco user Tobacco use type: Cigarette Cigarettes Per Day: 4 Years Smoked: started age 9, 0.5 PPD, e-Cigarette/Vaping Use: Never Used Second Hand Smoke Exposure: Yes Current occupational status: disabled Current occupation: right hand Cognitive needs: No Hearing needs: No Vision needs: No Review of Systems Const All systems reviewed & are unremarkable except as noted in HPI and below Physical Exam Vital Signs: BMI result Body Mass Index 19.6 Const General: no acute distress and alert Orientation/consciousness: patient oriented x3 Neuro General: patient oriented x3 Extrem Other: Evaluation of Left Upper Extremity: The patient is alert, oriented, and in no acute distress Neuro: Median, Ulnar, Radial nerves motor and sensory intact and sensation is normal to the tips of all digits Vascular: Cap refill brisk ROM: Full & symmetrical pronosiupination No swelling or erythema Fracture site non-tender No snuffbox tenderness No tenderness about the elbow No pain with proximal forearm squeeze Mildly tender over the basal joint No tenderness over the MCP joint No tenderness over the 1st dorsal compartment or a1 tj Radiographs: 3 views of the left wrist + Scaphoid view were taken today, viewed, and compared to radiographs from 10/13/24 by me today in clinic. They show a non-displaced distal radius metaphyseal fracture, at neutral on the lateral view. There is basal joint arthritis with joint space narrowing, subchondral sclerosis, and osteophyte formation. Psych Appearance: grossly normal Affect: normal affect Attitude: cooperative Assessment & Plan Assessment & Plan (1) Closed fracture of left distal radius: Code(s): S52.502A - Unspecified fracture of the lower end of left radius, initial encounter for closed fracture Category: Medical Plan Assessment & Plan: 1. Left distal radius fracture, non-displaced From a fall, DOI: 10/07/24 I educated her about this condition We managed this conservatively, in a cast She was fitted for a velcro wrist splint, to be worn for the next 2 weeks. After 2 weeks she can discontinue this when at home I discussed activity modifications, she is to lift nothing heavier than a cellphone for the next 2 weeks. She is still to avoid any heavy lifting, impact activities, or falls. This includes walking her dogs She will continue to work on finger & wrist ROM exercises at home I explained the effects of smoking on wound/bone healing, and recommend they stop smoking prior to surgery & while healing. This includes vaping, Marijuana, and other Nicotine products including patches used to help quit. They expressed understanding. She will follow up in 4 weeks for a ROM check, no X-rays Scribed for Michelle Grady MD by Ariel Oconnor, curator medical museum, on 11/04/24 at 3:15 PM, EST. Orders: Orders XR wrist LT min 3V Today M25.532 - Pain in left wrist Coding Level of Care Code Global (45909) Diagnoses Closed fracture of left distal radius S52.502A
[2024-11-04 15:02] VITALS: BMI 19.6
== END 2024-11-04 15:34 | disposition home or self-care (01) ==
LOC: HO.HOS 14:47
PROVIDERS: PCP Nurse Practitioner Family; Visit Provider Orthopaedic Surgery
DX: S52.502A Unspecified fracture of the lower end of left radius, initial encounter for closed fracture (principal)
CPT/HCPCS: 99024

== ENCOUNTER → 2024-11-04 14:49 | Outpatient (BNV) | payer OTHER, SELFPAY | PROVIDERS: Visit Provider Radiology Vascular & Interventional Radiology | DX: S52.502A Unspecified fracture of the lower end of left radius, initial encounter for closed fracture (principal) | CPT/HCPCS: 73110 ==

== ENCOUNTER → 2024-11-16 16:27 | Outpatient (BNV) | payer OTHER, SELFPAY | PROVIDERS: PCP Nurse Practitioner Family; Visit Provider Radiology Diagnostic Radiology | DX: M18.12 Unilateral primary osteoarthritis of first carpometacarpal joint, left hand (principal) | CPT/HCPCS: 73218 ==

== ENCOUNTER 2024-11-16 16:32 | Outpatient (REF) | payer OTHER, SELFPAY ==
--- NOTE | ~2024-11-16 | MR_ITS ---
EXAMINATION: MR UPPER EXTREMITY WITHOUT CONTRAST, LEFT CLINICAL INFORMATION: Idiopathic aseptic necrosis of unspecified bone. COMPARISON: Correlated to left wrist x-ray dated November 04, 2024. TECHNIQUE: MRI of the left hand was performed using routine sequences on a high-field scanner. FINDINGS: There is bone marrow signal abnormality within the lunate and to a lesser extent triquetral and probably pisiform. The scaphoid is not fully included in the [id number]. Degenerative changes in the first and second carpometacarpal joint with the heterogeneous bone marrow signal and trace of fluid. There is bone marrow STIR signal abnormality at the base of the first metacarpal bone. The second third fourth and fifth metacarpals are intact. The phalanges of the fifth digits demonstrated no gross malalignment. There are is minimal bone marrow inhomogeneity in the distal aspect of the proximal phalanges in the fourth and second digits. No gross fluid collections within the soft tissues.. MR/MR hand LT wo con IMPRESSION: Bone contusion versus aseptic necrosis, lunate. Bone contusions, triquetrum and probably pisiform. 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 Mild osteoarthrosis distal aspect proximal phalanx is in the second and fourth digits. Recommend dedicated MRI of the left wrist including distal radius and ulna. Electronically signed by: Wilmer Zurita MD 11/17/2024 08:01 AM EDT
== END 2024-11-16 16:33 | disposition home or self-care (01) ==
LOC: HO.MRI 16:32
PROVIDERS: PCP Nurse Practitioner Family; Visit Provider Nurse Practitioner Family
DX: R93.89 Abnormal findings on diagnostic imaging of other specified body structures (principal); M19.042 Primary osteoarthritis, left hand
CPT/HCPCS: 73218

== ENCOUNTER → 2024-11-17 15:10 | Outpatient (BNVA) | payer OTHER, SELFPAY | PROVIDERS: PCP Nurse Practitioner Family; Visit Provider Dietitian, Registered ==

== ENCOUNTER 2024-12-15 09:01 | Outpatient (REF) | payer OTHER, SELFPAY ==
--- OUTSIDE RECORDS SUMMARY | 2024-12-16 09:25 | XMS_ITS | Patient Health Record ---
Author Organization [facility] Address [address] [place] [address] Care Team Providers Care Stopboard Assembler Name Role Phone Steve Bermudez Primary Care Provider Unav ailable Dre Blanc Unavailable [phone] Allergies Allergen (clinical drug ingredient) Drug/Non Drug Allergy documented on EMR Reaction Allergy Type Onset Date Status sulfamethoxazole / trimethoprim Bactrim Unknown Drug Allergy Active isosorbide dinitrate Isosorbide Dinitrate Unknown Drug Allergy Active Novocain Unknown Drug Allergy Active tramadol Tramadol HCl vomiting Drug Allergy Acti ve sulfa Unknown Drug Allergy Active codeine Codeine rash Drug Allergy Active Reason For Referral No Information Medications Medication SIG (Take, Route, Frequency, Duration) Notes Start Date End Date Status Black Cohosh 80 MG Orally A ctive Atenolol 25 MG 1 tablet Orally Once a day Active Neurontin 300 MG 1 capsule Orally Thr ee times a day Active Vicodin 5-300 MG 1-2 tablet as needed Orally every 6 hrs for 05 days 02/16/2016 Active Carisoprodol 350 MG 1 tablet as needed O rally three times a day Active Flecainide Acetate 100 MG Orally Active Flovent HFA 220 MCG/ACT 1 puff Inhalatio n Twice a day Active ASA Active clonazePAM 0.5 MG 1 tablet Orally Twic e a day Active ZyrTEC Allergy 10 MG 1 tablet Orally Once a day Active Social History Tobacco use other than smoking: Question Answer Notes Are you an other tobacco user? No Problems Problem Type SNOMED Code ICD Code Onset Dates Problem Status W/U Status Risk Notes Problem Complex regional pain syndrome type I of right lower limb (disorder) ([id number]) Complex regional pain syndrome I of right lower limb (G90.521) Active confirmed Plan Of Treatment No Information Insurance Providers Payer Name Payer Address Payer Phone Subscriber Number Group Number Insured Name Patient Relationship to Insured Coverage Start Date Coverage End Date [facility] [address] [place] [address] [id number] Deon Shaw Spouse - patient is the spouse of the insured Medical (General) History Medical History History ICD Code A fib Anxiety Arthritis Back,Hip,and Knee pain Broken bones Chicken pox COPD Hypertension Menopause Nerve disease Panic disorder Poor circulation RSD Peripheral vascular disease Thrombus Varicose veins Angina Surgical History Surgery Date(Month/Year) heart surgery unspecified (blood clot) 2 013 hysterectomy 1998 Lymphnode biopsy
== END 2024-12-15 09:02 | disposition home or self-care (01) ==
LOC: HO.HOSX 09:01
PROVIDERS: Visit Provider Orthopaedic Surgery
DX: Z13.89 Encounter for screening for other disorder (principal)

== ENCOUNTER 2024-12-16 15:06 | Outpatient (REF) | payer OTHER, SELFPAY ==
--- NOTE | 2024-12-16 15:14 | PFT_ITS ---
Flows: FEV1: 50 % of predicted at 1.34 L FVC: 106 % of predicted at 3.59 L FEV1/FVC: 37 % Bronchodilator response: Present Volumes: Total lung capacity: 108 % of predicted at 5.76 L Residual volume: 161 % of predicted at 2.74 L Slow vital capacity: 83 % of predicted at 3.02 L Expiratory reserve volume: 83 % of predicted at 0.78 L Diffusion capacity: Moderately decreased. Impression: Severe obstructive ventilatory defect with positive bronchodilator response. Increased residual volume suggests air trapping. Decreased diffusion capacity suggests emphysema. MTDD
[2024-12-16 15:58] VITALS: PULSE 65; O2SAT 94
[2024-12-16 16:17] LABS: MANUAL DIFF FLAG NO
[2024-12-16 17:14] LABS: Basophils Percent Auto 0.3 % (0-2); Eosinophils Absolute Auto 0.2 X10*3/uL (0.0-0.4); Eosinophils Percent Auto 2.2 % (0-4); Hematocrit 44.1 % (37.0-47.0); Imm Gran Abs Auto 0.03 X10*3/uL (0.00-0.03); Imm Gran Pct Auto 0.3 % (0.0-0.4); Lymphocytes Absolute Auto 3.5 X10*3/uL (1.2-4.9); Lymphocytes Percent Auto 36.3 % (20-40); Mean Corpuscular Hemoglobin 31.5 pg (27.0-33.0); Mean Corpuscular Volume 92.6 fL (80.0-98.0); Mean Platelet Volume 10.1 fL (9.4-12.3); Monocytes Absolute Auto 0.9 X10*3/uL (0.1-1.2); Neutrophils Percent Auto 51.9 % (45-73); Platelet Count 329 X10*3/uL (160-400); Red Blood Count 4.76 X10*6/uL (4.20-5.50); Red Cell Distribution Width 13.1 % (11.0-16.0); White Blood Count 9.7 X10*3/uL (4.8-10.8)
[2024-12-16 17:32] LABS: Alanine Aminotransferase 8 U/L (0-31); Albumin Level 4.1 g/dL (3.5-5.0); Alkaline Phosphatase 59 U/L (39-117); Anion Gap 14 (12-20); Aspartate Amino Transferase 20 U/L (5-31); Bilirubin Total 0.4 mg/dL (0.0-1.0); Blood Urea Nitrogen 9 mg/dL (9-16); Calcium 8.9 mg/dL (8.4-10.2); Carbon Dioxide 26 mmol/L (22-29); Chloride 101 mmol/L (96-108); Estimated Glomerular Filt Rate 49; Glucose Random 88 mg/dL (60-115); Potassium 4.9 mmol/L (3.3-5.1); Sodium 136 mmol/L (135-145)
== END 2024-12-16 15:07 | disposition home or self-care (01) ==
LOC: HO.RESP 15:06
PROVIDERS: PCP Nurse Practitioner Family; Visit Provider Internal Medicine Pulmonary Disease
DX: R06.02 Shortness of breath (principal); D72.829 Elevated white blood cell count, unspecified; M87.9 Osteonecrosis, unspecified
CPT/HCPCS: 36415; 80053; 85025; 94010; 94640; 94727; 94729

== ENCOUNTER → 2024-12-16 15:14 | Outpatient (BNV) | payer OTHER, SELFPAY | PROVIDERS: PCP Nurse Practitioner Family; Visit Provider Internal Medicine Pulmonary Disease | DX: R06.02 Shortness of breath (principal) | CPT/HCPCS: 94060; 94727; 94729 ==

== ENCOUNTER 2024-12-17 10:17 | Outpatient (REF) | payer OTHER, SELFPAY ==
--- NOTE | ~2024-12-17 | XR_ITS ---
EXAMINATION: XR CHEST 2 VIEWS HISTORY: D72.829 - Elevated white blood cell count, unspecified COMPARISON: Comparison is made with the prior examination dated 08/19/2020. FINDINGS: PA and lateral views of the chest are submitted. The lungs are hyperinflated, consistent with COPD. The lungs are clear. There is no pleural effusion, pneumothorax, or pulmonary vascular congestion. The heart is normal in size. There is degenerative disc disease of the spine. XR/XR chest 2V IMPRESSION: COPD. No acute cardiopulmonary abnormality. Electronically signed by: Yvon Rhodes MD 12/17/2024 11:13 AM EDT
--- OUTSIDE RECORDS SUMMARY | 2024-12-17 11:59 | XMS_ITS | Patient Health Record ---
[facility] Address [address] [place] [address] Care Team Providers Care Card Brusher Name Role Phone Steve Bermudez Primary Care Provider Unav ailDre Moe Unavailable [phone] Allergies Allergen (clinical drug ingredient) Drug/Non Drug [...] type I of right lower limb (disorder) ([id number] 09) Complex regional pain syndrome I of right lower limb (G90.521) Active confirmed Plan Of Treatment No Information Insurance Providers Payer Name Payer Address Payer Phone Subscriber Number Group Number Insured Name Patient Relationship to Insured Coverage Start Date Coverage End Date [facility] [address] [place] [address] [phone] [id number] Deon Shaw Spouse - patient is the [...]
[2024-12-17 13:33] LABS: MANUAL DIFF FLAG NO
[2024-12-17 13:41] LABS: Basophils Absolute Auto 0.1 X10*3/uL (0.0-0.2); Basophils Percent Auto 0.5 % (0-2); Eosinophils Absolute Auto 0.2 X10*3/uL (0.0-0.4); Hematocrit 42.4 % (37.0-47.0); Hemoglobin 13.9 g/dl (12.0-16.0); Imm Gran Abs Auto 0.04 X10*3/uL (0.00-0.03); Imm Gran Pct Auto 0.3 % (0.0-0.4); Lymphocytes Absolute Auto 4.2 X10*3/uL (1.2-4.9); Lymphocytes Percent Auto 34.3 % (20-40); Mean Corpuscular HGB Conc 32.8 g/dl (31.0-35.0); Mean Corpuscular Hemoglobin 31.4 pg (27.0-33.0); Mean Corpuscular Volume 95.7 fL (80.0-98.0); Mean Platelet Volume 10.1 fL (9.4-12.3); Monocytes Percent Auto 8.5 % (2-11); Neutrophils Absolute Auto 6.7 x10*3/uL (2.0-8.3); Neutrophils Percent Auto 54.4 % (45-73); Platelet Count 330 X10*3/uL (160-400); Red Blood Count 4.43 X10*6/uL (4.20-5.50); Red Cell Distribution Width 13.3 % (11.0-16.0); White Blood Count 12.3 X10*3/uL (4.8-10.8)
== END 2024-12-17 10:18 | disposition home or self-care (01) ==
LOC: HO.HMGCX 10:17
PROVIDERS: PCP Nurse Practitioner Family; Visit Provider Nurse Practitioner Family
DX: D72.829 Elevated white blood cell count, unspecified (principal)
CPT/HCPCS: 36415; 71046; 85025

== ENCOUNTER → 2024-12-17 10:39 | Outpatient (BNV) | payer OTHER, SELFPAY | PROVIDERS: PCP Nurse Practitioner Family; Visit Provider Radiology Diagnostic Radiology | DX: J44.9 Chronic obstructive pulmonary disease, unspecified (principal) | CPT/HCPCS: 71046 ==

== ENCOUNTER → 2024-12-28 14:21 | Outpatient (BNVA) | payer OTHER, SELFPAY | PROVIDERS: PCP Nurse Practitioner Family; Visit Provider Internal Medicine Cardiovascular Disease ==

== ENCOUNTER 2025-02-11 13:58 | Outpatient (AMB) | payer OTHER, SELFPAY ==
[2025-02-11 14:08] VITALS: BP 124/78; PULSE 64; RESP 16; O2SAT 99; BMI 19.6
--- NOTE | 2025-02-11 14:08 | MHC.PC.OV ---
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 History of Present Illness The patient is a 54-year-old female presenting with depression. She reports significant improvement with Seroquel and declines additional therapy. Previously experiencing malnutrition, she is now gaining weight and improving her diet with Boost supplements and increased protein intake. Having quit smoking a week ago, she reports issues with Symbicort for COPD due to thrush, prompting a switch to a LAMA and nely. She is scheduled for imaging studies, including a low-dose CT scan and an MRI for suspected avascular necrosis. Social History - Smoking: Quit approximately one week ago - Nutrition: Increasing dietary intake with a focus on high-protein foods, uses Boost supplements Health Maintenance - Smoking cessation: Quit smoking approximately one week ago - Preventative care: Colon cancer screening is up to date - Scheduled imaging: Low-dose CT scan and MRI for avascular necrosis Review of Systems - Respiratory: Denies increased dyspnea, denies chest pain, fevers, chills, N/V Physical Exam General: Cooperative, healthy appearing, comfortable, no acute distress and well developed Orientation: Patient oriented x3 Limitations: No limitations Head: Normal to inspection Ears: Hearing grossly normal bilaterally Nose: Normal external nose present Face and sinus: Normal facial exam Eyes: Appearance normal, both eyes and all related structures Neck: Normal visual inspection and Yes full ROM Respiratory: Lungs were fairly clear, bilaterally slightly diminished. Small amt of rhonchi present Cardiovascular: Regular rate and rhythm. Normal S1 and S2, no carotid bruits GI: Normal to inspection. Soft to palpation and nontender Skin: No rashes or lesions noted Neuro: Patient oriented x3 Extremities: Normal to inspection Results - Scheduled: Low-dose CT scan - Scheduled: MRI of the ulnar radial region for avascular necrosis Plan The patient will continue on Seroquel for depression management, as she reports significant improvement. She refuses therapy and mammograms, and these will not be pursued at this time. For COPD management, Symbicort will be discontinued due to thrush, and a LAMA will be initiated (cont NELY). She is encouraged to maintain her improved dietary intake with a focus on high-protein foods and continue using Boost supplements. Scheduled imaging includes a low-dose CT scan (lung) and an MRI to assess for avascular necrosis. Discussion Notes I discussed with the patient the continuation of Seroquel for her depression, given her positive response. We reviewed her refusal of therapy and mammograms, respecting her decision. For her COPD, I explained the switch from Symbicort to a LAMA due to thrush issues. We also discussed her dietary improvements and the importance of maintaining a high-protein intake. I informed her about the upcoming imaging studies to evaluate for avascular necrosis. Patient Instructions - Continue taking Seroquel as prescribed. - Maintain a high-protein diet and use Boost supplements as needed. - Attend scheduled imaging appointments for CT scan and MRI. - Monitor for any respiratory symptoms and report if they worsen. [facility] Medical History (Updated 02/11/25 @ 14:53 by EMRE Lara) Severe protein-calorie malnutrition Left wrist injury Hypertension Insomnia Depression Skin cancer Vasospastic angina Cervical neck pain with evidence of disc disease Dyslipidemia COPD (chronic obstructive pulmonary disease) Paroxysmal A-fib Aphasia Reflex sympathetic dystrophy Surgical History H/O lymph node biopsy History of hemorrhoidectomy History of partial hysterectomy History of tubal ligation Family History Father Brain cancer Mother Obesity Anxiety Mental health disorder Maternal Grandmother Breast cancer Maternal Grandfather Lung cancer Smoker Paternal Grandfather Heart disease Paternal Grandmother Breast cancer Diabetes mellitus Brother Mental health disorder Son Mental health disorder Paternal Uncle Substance use disorder Family/Other No problems noted. Family/Other Substance use disorder Social History Housing: House Patient Tobacco Use Status: Current everyday Tobacco user Tobacco use type: Cigarette Cigarettes Per Day: 4 Years Smoked: started age 9, 0.5 PPD, Packs per year/per ci.00 e-Cigarette/Vaping Use: Never Used Second Hand Smoke Exposure: Yes Current occupational status: disabled Current occupation: right hand Cognitive needs: No Hearing needs: No Vision needs: No Questionnaire Thrive Questionnaire Date Thrive assessed: 08/06/24 I am a: Patient What is your living situation today?: I have a steady place to live Within the past 12 months, did the food you bought not last and you didn't have the money to get more?: Often true Within the past 12 months, did you worry whether your food would run out before you got money to buy more?: Often true Do you have trouble paying for medicines?: No Do you have trouble getting transportation to medical appointments?: Yes Do you have trouble paying your heating and electricity bill?: Yes Do you have trouble taking care of your child, family member or friend?: No Do you have trouble with day-to-day activities such as bathing, preparing meals, shopping, managing finances, etc.?: No Are you currently unemployed and looking for a job?: No Are you interested in more education?: No Currently or been in a relationship where the following occur: I choose not to answer THRIVE Score: 4 FRITZ-7 AMB Questionnaire FRITZ-7 Date FRITZ - 7 assessed: 08/06/24 Source: Developed by Drs. Yvon Hill, Anu Meeks, Franko Mendez and colleagues, with an educational jason from [employer]. Physical exam (Primary Care) Vital Signs: Last Vital Signs Pulse 64 02/11/25 14:08 Resp 16 02/11/25 14:08 BP 124/78 02/11/25 14:08 Pulse Ox 99 02/11/25 14:08 Oxygen Delivery Method Room Air 02/11/25 14:08 BMI result Body Mass Index 19.6 Tobacco/Smoking Status: Tobacco use Status Tobacco use date assessed 08/06/24 02/11/25 14:16 Patient Tobacco Use Status Current everyday Tobacco 02/11/25 14:16 Tobacco use type Cigarette 02/11/25 14:16 e-Cigarette/Vaping Use Never Used 02/11/25 14:16 Thrive Assessment: Date of Thrive Assessment Date Thrive assessed 08/06/24 02/11/25 14:16 Currently or been in a relationship where the following occur: I choose not to answer Coding Level of Care Code Est Pt Level 3 (02546) Diagnoses Weight loss R63.4 Smoker F17.200 Severe protein-calorie malnutrition E43 Depression F32.9 Assessment & Plan Assessment & Plan (1) Weight loss: Code(s): R63.4 - Abnormal weight loss Category: Medical (2) Smoker: Code(s): F17.200 - Nicotine dependence, unspecified, uncomplicated Category: Social Hx (3) Severe protein-calorie malnutrition: Code(s): E43 - Unspecified severe protein-calorie malnutrition Category: Medical (4) Depression: Code(s): F32.9 - Major depressive disorder, single episode, unspecified Category: Medical Plan . Orders: Orders Comprehensive Met. Panel Today E43 - Unspecified severe protein-calorie malnutrition, F32.9 - Major depressive disorder, single episode, unspecified, R63.4 - Abnormal weight loss TSH reflex Free T4 Today E43 - Unspecified severe protein-calorie malnutrition, F32.9 - Major depressive disorder, single episode, unspecified, R63.4 - Abnormal weight loss Complete Blood Count Auto Diff Today E43 - Unspecified severe protein-calorie malnutrition, F32.9 - Major depressive disorder, single episode, unspecified, R63.4 - Abnormal weight loss UA CC w/rflx Micro + Cult Today E43 - Unspecified severe protein-calorie malnutrition, F32.9 - Major depressive disorder, single episode, unspecified, R63.4 - Abnormal weight loss Medications: New aclidinium bromide 400 mcg/actuation (Tudorza Pressair) 1 inh inhalation BID 1 ea 0RF Discontinued budesonide-formoterol 80-4.5 mcg/actuation (Symbicort) please rinse mouth out after each use Discontinued Reason: Doctor's Order 1 puff inhalation BID 30 days 10.2 grams 6RF
--- OUTSIDE RECORDS SUMMARY | 2025-02-11 14:10 | XMS_ITS | Patient Health Record ---
[facility] Address [address] [place] [address] Care Team Providers Care Clinical Rehab Specialist Name Role Phone Steve Bermudez Primary Care Provider Unav ailDre Moe Unavailable [phone] Allergies Allergen (clinical drug ingredient) Drug/Non Drug [...] 1-2 tablet as needed Orally every 6 hrs; Duration: 05 days 02/16/2016 Active Carisoprodol 350 MG [...] type I of right lower limb (disorder) ([id number]) Complex regional pain syndrome I of right lower limb (G90.521) Active confirmed Plan Of Treatment No Information Insurance Providers Payer Name Payer Address Payer Phone Subscriber Number Group Number Insured Name Patient Relationship to Insured Coverage Start Date Coverage End Date [facility] [address] [place] [address] [id number] Deon Shaw Spouse - patient is the [...]
== END 2025-02-11 15:06 | disposition home or self-care (01) ==
LOC: HO.HMCC 13:58
PROVIDERS: PCP Nurse Practitioner Family; Visit Provider Nurse Practitioner Family
DX: R63.4 Abnormal weight loss (principal); F17.200 Nicotine dependence, unspecified, uncomplicated; E43 Unspecified severe protein-calorie malnutrition; F32.9 Major depressive disorder, single episode, unspecified

== ENCOUNTER → 2025-02-11 13:58 | Outpatient (BNVA) | payer OTHER, SELFPAY | PROVIDERS: PCP Nurse Practitioner Family; Visit Provider Nurse Practitioner Family | DX: R63.4 Abnormal weight loss (principal); J44.9 Chronic obstructive pulmonary disease, unspecified; F17.210 Nicotine dependence, cigarettes, uncomplicated; E43 Unspecified severe protein-calorie malnutrition; F32.9 Major depressive disorder, single episode, unspecified; Z79.899 Other long term (current) drug therapy | CPT/HCPCS: 99212 ==

== ENCOUNTER 2025-04-28 11:27 | Outpatient (REF) | payer OTHER, SELFPAY ==
--- NOTE | ~2025-04-28 | CT_ITS ---
EXAMINATION: CT LUNG SCREENING HISTORY: F17.200 - Nicotine dependence, unspecified, uncomplicated TECHNIQUE: Low dose axial images were obtained from the sternal notch to upper abdomen without IV contrast per standard departmental protocol. Sagittal and coronal reformatted images were also obtained and reviewed. One or more of the following techniques was used for dose reduction: Automated exposure control, adjustment of the mA and/or kV according to patient size, use of iterative reconstruction technique. DLP: 40 mGy-cm COMPARISON: Previous chest x-ray December 2024 FINDINGS: Lung nodules: 2 x 7 mm peripheral or subpleural right lower lobe nodule adjacent to the major fissure axial image 95 series 4. 3 mm peripheral or subpleural right lower lobe nodule adjacent to the major fissure axial image 123 series 4. 2 x 10 mm left lower lobe nodule adjacent to the fissure axial image 81 series 4. These Probably represent peripheral or subpleural lymph nodes. 2 mm right upper lobe nodule axial image 64 series 6. 2 mm right middle lobe nodule axial image 125 series 4. 3 mm left lower lobe nodule axial image 127 series 4. Mild subsegmental atelectasis at the lung bases. Scattered areas of bronchial wall thickening. Mild mucous plugging in the right lower lobe. Central airways are clear. Emphysema: moderate to severe. Lungs are well inflated. Coronary Calcification: mild Aortic Arch Calcification: mild Potentially Significant Incidentals : none Additional Chest Findings: There is no pleural or pericardial effusion. No mediastinal or axillary lymphadenopathy is identified. Visualized upper abdomen: 2.5 cm low-attenuation lesion in the upper pole of the right kidney probably representing a cyst. 1 cm high attenuation lesion in the upper pole of the left kidney. This may represent a hyperdense cyst. Recommend follow-up renal ultrasound. Degenerative changes of the spine. No suspicious bone lesion. CT/CT lung screening IMPRESSION: Emphysema. No suspicious pulmonary nodule. LUNG-RADS ASSESSMENT: Lung-RADS 2: Benign MANAGEMENT: Continue annual screening with LDCT in 12 months Category S: Recommend follow-up renal ultrasound. Electronically signed by: Jenn Unger MD 04/28/2025 12:17 PM EDT
== END 2025-04-28 11:28 | disposition home or self-care (01) ==
LOC: HO.CT 11:27
PROVIDERS: PCP Nurse Practitioner Family; Visit Provider Internal Medicine Pulmonary Disease
DX: Z12.2 Encounter for screening for malignant neoplasm of respiratory organs (principal); F17.200 Nicotine dependence, unspecified, uncomplicated
CPT/HCPCS: 71271

== ENCOUNTER → 2025-04-28 11:29 | Outpatient (BNV) | payer OTHER, SELFPAY | PROVIDERS: PCP Nurse Practitioner Family; Visit Provider Radiology Diagnostic Radiology | DX: F17.210 Nicotine dependence, cigarettes, uncomplicated (principal) | CPT/HCPCS: 71271 ==